=== PATIENT | female | born 1965 | race Caucasian/White ===

== ENCOUNTER 2016-09-02 14:19 | Observation (INO) | payer OTHER ==
[2016-09-02] MEDS ORDERED: NS 0.9% 1000 ML* 1,000 ML IV SCH (14:45)
[2016-09-02] MEDS ORDERED: Ondansetron INJ* 2 MG/ML VIAL IV ONE (14:54)
[2016-09-02 15:06] LABS: Hematocrit 49 % (35-47); Hemoglobin 16.3 g/dl (12.0-16.0); Mean Corpuscular HGB Conc 34 g/dl (31-36); Mean Corpuscular Hemoglobin 29 pg (27-31); Mean Corpuscular Volume 86 fL (80-97); Mean Platelet Volume 9 um3 (7.4-10.4); Red Blood Count 5.65 10^6/ul (4.0-5.4); Red Cell Distribution Width 13 % (10.5-15); White Blood Count 26.6 10^3/ul (3.5-10.8)
--- NOTE | 2016-09-02 15:17 | RAD ---
INDICATION: Altered mental status. COMPARISON: Comparison is made with a prior CT of the brain from April 10, 2016 and a prior MRI of the brain from April 12, 2016. TECHNIQUE: Contiguous axial sections of the brain were obtained from the skull base to the vertex without contrast. FINDINGS: There is a moderate to large area of encephalomalacia present on the left side in the distribution of the left middle cerebral artery consistent with an old infarct. There is also a small area of decreased density present in the posterior limb of the right internal capsule most consistent with an old lacunar infarct. This appears new from the prior study. No other focal abnormalities or mass effect are seen. There is no evidence for hemorrhage.. There is complete opacification of the visualized portion of the left maxillary sinus which appears similar to the prior exam. The visualized portion of the paranasal sinuses and mastoid air cells otherwise appear clear. IMPRESSION: 1. NO EVIDENCE FOR GROSS ACUTE INFARCT, MASS EFFECT OR HEMORRHAGE. 2. 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 3. FINDINGS SUGGESTIVE OF AN OLD LACUNAR INFARCT ON THE RIGHT SIDE.
[2016-09-02 15:21] LABS: ALT 14 U/L (7-52); AST 12 U/L (13-39); Albumin 4.3 g/dL (3.2-5.2); Alkaline Phosphatase 126 U/L (34-104); Anion Gap 14 mmol/L (2-11); BUN/Creatinine Ratio 12.6 (8-20); Blood Urea Nitrogen 13 mg/dL (6-24); C Reactive Protein 5.95 mg/L (< 5.00); CO2 Carbon Dioxide 23 mmol/L (22-32); Calcium 10.5 mg/dL (8.6-10.3); Chloride 99 mmol/L (101-111); Creatine Kinase 18 U/L (10-223); EGFR African American 72.7 (>60); EGFR Non-African American 56.5 (>60); Globulin 3.6 g/dL (2-4); Glucose 214 mg/dL (70-100); Lipase 36 U/L (11.0-82.0); Magnesium 1.8 mg/dL (1.9-2.7); Potassium 3.6 mmol/L (3.5-5.0); Sodium 136 mmol/L (133-145); Total Protein 7.9 g/dL (6.4-8.9)
[2016-09-02 15:23] LABS: B Type Natriuretic Peptide 48 pg/mL
[2016-09-02 15:26] LABS: Add Diff/Slide Review? Slide Review Added; Comments Flag Yes
--- NOTE | 2016-09-02 15:43 | RAD ---
INDICATION: Altered mental status. COMPARISON: Comparison is made with a prior study from April 08, 2016. TECHNIQUE: A portable view of the chest was obtained. FINDINGS: Cardiac and mediastinal contours appear to be within normal limits. The lungs are clear. No pleural effusion is seen. IMPRESSION: NO EVIDENCE FOR ACUTE DISEASE.
[2016-09-02 15:44] LABS: Acetaminophen < 15 mcg/mL
[2016-09-02 15:55] LABS: TSH (Thyroid Stimulating Horm) 2.84 mcIU/mL (0.34-5.60)
[2016-09-02 16:02] LABS: Ammonia 35 mol/L (16-53)
[2016-09-02 16:12] LABS: Eosinophils % 1 % (0-6); Immature Granulocytes 14 % (0-9); Neutrophil % 77 % (38-83); RBC Morphology Normal (Normal)
--- NOTE | 2016-09-02 17:15 | ED ---
Ivan Hernandez Billy, scribed for José Whitehead MD on 09/02/16 at 1540 . Complex/Multi-Sys Presentation - HPI Summary HPI Summary: Patient is a 51 year-old female coming to [facility] presenting with AMS since earlier today. Patient's daughter reports that at 1230, patient had an episode of N/V in the car. By the time they arrived home, the patient had diarrhea in the car and in the house. Per daughter, patient also appeared somewhat confused. Patient had previous CVA and has right-sided weakness and expressive aphasia at baseline; today she is acting worse than baseline. No antibiotics, hospitalizations, or contact with sick people recently. - History Of Current Complaint Chief Complaint: EDAltMentalStatus Time Seen by Provider: 09/02/16 15:19 Hx Obtained From: Patient Onset/Duration: Gradual Onset, Lasting Hours, Still Present Timing: Constant Severity Currently: Moderate Severity Initially: Moderate Aggravating Factor(s): none Alleviating Factor(s): none Associated Signs And Symptoms: Positive: Confusion, Nausea, Vomiting, Diarrhea - Allergies/Home Medications Allergies/Adverse Reactions: Allergies Allergy/AdvReac Type Severity Reaction Status Date / Time Clarithromycin [From Biaxin] Allergy Rash Verified 04/10/16 15:29 Diphenhydramine Allergy Rash Verified 04/10/16 15:29 [From Benadryl] Latex Allergy Rash Verified 04/10/16 15:29 Home Medications: Home Medications Insulin GLARGINE(*) [Lantus(*)] 10 units SUBCUT QPM 09/02/16 [History Confirmed 09/02/16] PMH/Surg Hx/FS Hx/Imm Hx Endocrine/Hematology History: Reports: Hx Diabetes Cardiovascular History: Reports: Hx Hypertension, Other Cardiovascular Problems/ Disorders - hx stroke on right side 04/16 Denies: Hx Pacemaker/ICD Respiratory History: Reports: Hx Asthma Musculoskeletal History: Reports: Hx Fibromyalgia Sensory History: Reports: Hx Contacts or Glasses Denies: Hx Hearing Aid Opthamlomology History: Reports: Hx Contacts or Glasses Psychiatric History: Denies: Hx Panic Disorder - Surgical History Surgery Procedure, Year, and Place: C-CECTION 88, 92 SKIN TAG Infectious Disease History: No Infectious Disease History: Denies: Traveled Outside the [place] in Last 30 Days - Family History Known Family History: Positive: Cardiac Disease - Per EMR, Father 68 with [place]. Mother at 62 with [place]. , Hypertension, Diabetes - Social History Alcohol Use: Rare Hx Substance Use: No Substance Use Type: Reports: None Smoking Status (MU): Heavy Every Day Tobacco Smoker Type: Cigarettes Review of Systems Positive: Vomiting, Diarrhea, Nausea Neurological: Other - AMS, expressive aphasia Positive: Weakness - right-sided All Other Systems Reviewed And Are Negative: Yes Physical Exam - Summary Physical Exam Summary: VITAL SIGNS: Reviewed. GENERAL: Patient is an obese female who is lying comfortable in the stretcher. Patient is not in any acute respiratory distress. HEAD AND FACE: Normocephalic and atraumatic. EYES: PERRLA, EOMI x 2, No injected conjunctiva. EARS: Hearing grossly intact. Ear canals and tympanic membranes are WNL. MOUTH: Dry oral mucosa. NECK: Supple, trachea is midline, no adenopathy, no JVD. CHEST: Symmetric, no tenderness at palpation LUNGS: Clear to auscultation bilaterally. No wheezing or crackles. CVS: RRR,, S1 and S2 present, no murmurs or gallops appreciated. ABDOMEN: Soft, obese, non-tender. No signs of distention. Positive bowel sounds. No rebound no guarding, and no masses palpated. No abdominal bruit or pulsations. EXTREMITIES: FROM in all major joints, no edema, no cyanosis or clubbing. NEURO: letkargic, but answers questions appropriately. SKIN: Dry and warm Triage Information Reviewed: Yes Vital Signs On Initial Exam: Initial Vitals Temp Pulse Resp BP Pulse Ox 96.6 F 73 18 120/67 97 09/02/16 14:42 09/02/16 14:42 09/02/16 14:42 09/02/16 14:42 09/02/16 14:42 Vital Signs Reviewed: Yes Diagnostics - Vital Signs Vital Signs Temp Pulse Resp BP Pulse Ox 09/02/16 14:42 96.6 F 73 18 120/67 97 - Laboratory Lab Results: Lab Results 09/02/16 09/02/16 09/02/16 Range/Units 14:55 14:55 14:55 WBC 26.6 H (3.5-10.8) 10^3/ul RBC 5.65 H (4.0-5.4) 10^6/ul Hgb 16.3 H (12.0-16.0) g/dl Hct 49 H (35-47) % MCV 86 (80-97) fL MCH 29 (27-31) pg MCHC 34 (31-36) g/dl RDW 13 (10.5-15) % Plt Count 342 (150-450) 10^3/ul MPV 9 (7.4-10.4) um3 Neut % (Auto) 93.0 H (38-83) % Lymph % (Auto) 4.1 L (25-47) % [place] % (Auto) 2.1 (1-9) % Eos % (Auto) 0.6 (0-6) % Baso % (Auto) 0.2 (0-2) % Absolute Neuts (auto) 24.7 H (1.5-7.7) 10^3/ul Absolute Lymphs (auto) 1.1 (1.0-4.8) 10^3/ul Absolute Monos (auto) 0.6 (0-0.8) 10^3/ul Absolute Eos (auto) 0.1 (0-0.6) 10^3/ul Absolute Basos (auto) 0.1 (0-0.2) 10^3/ul Absolute Nucleated RBC 0 10^3/ul Nucleated RBC % 0 Sodium 136 (133-145) mmol/L Potassium 3.6 (3.5-5.0) mmol/L Chloride 99 L (101-111) mmol/L Carbon Dioxide 23 (22-32) mmol/L Anion Gap 14 H (2-11) mmol/L BUN 13 (6-24) mg/dL Creatinine 1.03 H (0.51-0.95) mg/dL Est GFR ( Amer) 72.7 (>60) Est GFR (Non-Af Amer) 56.5 (>60) BUN/Creatinine Ratio 12.6 (8-20) Glucose 214 H (70-100) mg/dL Lactic Acid (0.5-2.0) mmol/L Calcium 10.5 H (8.6-10.3) mg/dL Magnesium 1.8 L (1.9-2.7) mg/dL Total Bilirubin 0.50 (0.2-1.0) mg/dL AST 12 L (13-39) U/L ALT 14 (7-52) U/L Alkaline Phosphatase 126 H (34-104) U/L Ammonia Pending Total Creatine Kinase 18 (10-223) U/L CK-MB (CK-2) 0.9 (0.6-6.3) ng/mL Troponin I 0.00 (<0.04) ng/mL C-Reactive Protein 5.95 H (< 5.00) mg/L B-Natriuretic Peptide 48 ( - 100) pg/mL Total Protein 7.9 (6.4-8.9) g/dL Albumin 4.3 (3.2-5.2) g/dL Globulin 3.6 (2-4) g/dL Albumin/Globulin Ratio 1.2 (1-3) Lipase 36 (11.0-82.0) U/L TSH Pending Acetaminophen Pending 09/02/16 Range/Units 14:55 WBC (3.5-10.8) 10^3/ul RBC (4.0-5.4) 10^6/ul Hgb (12.0-16.0) g/dl Hct (35-47) % MCV (80-97) fL MCH (27-31) pg MCHC (31-36) g/dl RDW (10.5-15) % Plt Count (150-450) 10^3/ul MPV (7.4-10.4) um3 Neut % (Auto) (38-83) % Lymph % (Auto) (25-47) % [place] % (Auto) (1-9) % Eos % (Auto) (0-6) % Baso % (Auto) (0-2) % Absolute Neuts (auto) (1.5-7.7) 10^3/ul Absolute Lymphs (auto) (1.0-4.8) 10^3/ul Absolute Monos (auto) (0-0.8) 10^3/ul Absolute Eos (auto) (0-0.6) 10^3/ul Absolute Basos (auto) (0-0.2) 10^3/ul Absolute Nucleated RBC 10^3/ul Nucleated RBC % Sodium (133-145) mmol/L Potassium (3.5-5.0) mmol/L Chloride (101-111) mmol/L Carbon Dioxide (22-32) mmol/L Anion Gap (2-11) mmol/L BUN (6-24) mg/dL Creatinine (0.51-0.95) mg/dL Est GFR ( Amer) (>60) Est GFR (Non-Af Amer) (>60) BUN/Creatinine Ratio (8-20) Glucose (70-100) mg/dL Lactic Acid 3.1 H* (0.5-2.0) mmol/L Calcium (8.6-10.3) mg/dL Magnesium (1.9-2.7) mg/dL Total Bilirubin (0.2-1.0) mg/dL AST (13-39) U/L ALT (7-52) U/L Alkaline Phosphatase (34-104) U/L Ammonia Total Creatine Kinase (10-223) U/L CK-MB (CK-2) (0.6-6.3) ng/mL Troponin I (<0.04) ng/mL C-Reactive Protein (< 5.00) mg/L B-Natriuretic Peptide ( - 100) pg/mL Total Protein (6.4-8.9) g/dL Albumin (3.2-5.2) g/dL Globulin (2-4) g/dL Albumin/Globulin Ratio (1-3) Lipase (11.0-82.0) U/L TSH Acetaminophen Result Diagrams: 09/02/16 14:55 09/02/16 14:55 Lab Statement: Any lab studies that have been ordered have been reviewed, and results considered in the medical decision making process. - Radiology CXR Xray Interpretation: No Acute Changes Radiology Interpretation Completed By: Radiologist - CT brain w/o CT Interpretation Completed By: Radiologist - 1. NO EVIDENCE FOR GROSS ACUTE INFARCT, MASS EFFECT OR HEMORRHAGE. 2. 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 3. FINDINGS SUGGESTIVE OF AN OLD LACUNAR INFARCT ON THE RIGHT SIDE. Complex Multi-Symp Course/Dx Assessment/Plan: Patient is a 51 year-old female coming to [facility] presenting with AMS since earlier today. Patient's daughter reports that at 1230, patient had an episode of N/V in the car. By the time they arrived home, the patient had diarrhea in the car and in the house. Per daughter, patient also appeared somewhat confused. Patient had previous CVA and has right-sided weakness and expressive aphasia at baseline; today she is acting worse than baseline. No antibiotics, hospitalizations, or contact with sick people recently. Bloodwork shows WBC of 26.6, Hgb/Hct is 16.3/49 without bands. Creatinine of 1.03. Glucose of 214. Lactic acid of 3.1. CRP of 5.95. CT of the brain shows no evidence of acute infarct and old left middle cerebral artery infarct. CXR shows no acute disease. In the ED course, patient seemed dehydrated, so she was started with IV fluids. The patient had several episodes of foul, odorous diarrhea without blood. Stool cultures were sent to the lab. The patient was given 2L of normal saline. At this point, I discussed the case with Dr. Rahman who will be admitting the patient to the medical floor for further workup and management. - Diagnoses Differential Diagnoses/HQI/PQRI: CVA, Urinary Tract Infection, Other - diarrhea , weakness Provider Diagnoses: Diarrhea, Weakness, Abdominal cramping Provider Diagnoses: (Ruled Out): gastroenteritis, cdiff - Physician Notifications Discussed Care Of Patient With: Dr. Rahman (hospitalist) @ 1620: accepts admission. Discharge - Discharge Plan Condition: Stable Disposition: ADMITTED TO [facility] documentation as recorded by the Ivan garcia Billy accurately reflects the service I personally performed and the decisions made by me, José Whitehead MD.
[2016-09-02] MEDS ORDERED: Acetaminophen TAB* 325 MG PO PRN (17:27)
[2016-09-02] MEDS ORDERED: Dextrose 50% Syringe 50 ML* 25 GM/50 ML SYRINGE IV PUSH PRN (17:27)
[2016-09-02] MEDS ORDERED: Ondansetron INJ* 2 MG/ML VIAL IV PRN (17:27)
[2016-09-02] MEDS ORDERED: Albuterol HFA INHALER* 8 gm MDI INH PRN (17:30)
[2016-09-02] MEDS ORDERED: Magnesium Sulfate 2 GM IV* 2 GM/50 ML BAG IVPB ONE (17:40)
[2016-09-02] MEDS ORDERED: Insulin GLARGINE(*) 1 UNITS UNIT SUBCUT SCH (18:00)
[2016-09-02] MEDS: NS 0.9% 1000 ML* 1,000 ML IV SCH (18:00)
[2016-09-02 18:42] LABS: Hematocrit 44 % (35-47); Hemoglobin 14.3 g/dl (12.0-16.0); Mean Corpuscular HGB Conc 33 g/dl (31-36); Mean Corpuscular Hemoglobin 29 pg (27-31); Mean Corpuscular Volume 87 fL (80-97); Mean Platelet Volume 9 um3 (7.4-10.4); Red Blood Count 4.99 10^6/ul (4.0-5.4); Red Cell Distribution Width 14 % (10.5-15); White Blood Count 19.2 10^3/ul (3.5-10.8)
[2016-09-02 18:56] LABS: EGFR African American 81.7 (>60); EGFR Non-African American 63.6 (>60)
[2016-09-02 20:28] LABS: Urine Bacteria Absent (Absent); Urine Bilirubin Negative (Negative); Urine Glucose Negative (Negative); Urine Nitrite Negative (Negative)
[2016-09-02] MEDS ORDERED: traZODone TAB* 50 MG TAB PO SCH (21:00)
[2016-09-02] MEDS: Heparin VIAL(*) 5000 UNITS/ML VIAL (FIVE THOUSAND) SUBCUT SCH (21:56)
--- NOTE | 2016-09-02 22:13 | HP ---
ATTENDING PHYSICIAN ADDENDUM NOW INCLUDED ON THIS REPORT HISTORY AND PHYSICAL: DATE OF ADMISSION: 09/02/16 PRIMARY CARE PROVIDER: Dr. Mckenzie. ATTENDING PHYSICIAN WHILE IN THE HOSPITAL: Dr. Dominique Rahman *(report dictated by Colin Zayas NP). CHIEF COMPLAINT: 1. Vomiting. 2. Diarrhea. HISTORY OF PRESENT ILLNESS: Mrs. Wolf is a 51-year-old female patient who in April of this year sustained a CVA with right-sided weakness and aphasia as deficits, history of diabetes, hypertension, asthma, anxiety, tobacco use, history of now and a history of fibromyalgia. She comes in today. She was on her way home with her daughter and she started vomiting about 4 times in the car. The patient asked her to mold puller and she went to stand up and she looked like she was going to faint. She did not lose consciousness, but the daughter was concerned because she was complaining of lightheadedness and that she might faint. She sat her down and it was noted that she was incontinent of diarrhea. She had about 3 to 4 episodes of loose diarrhea. There has been no recent antibiotics. She says that when she initially came to the ER, she had some periumbilical abdominal discomfort, but that has now gone. There has been no blood in the vomit and no blood in the stool or any tarry stools, but the stools have been liquid. The family all had the same meal last night, they are not sick. The daughter does work at a local group home, who is exposed to sick contact. Obviously, there was concern on the daughter's part. She could not get the patient back in the car when she stood up to vomit. So, she called 911 and she was brought in to the hospital. The patient now says that she feels better. She does feel nauseous, but she is still having liquid stools. There has been no reports of fever. Yesterday, the patient said she was feeling fine. She had no sore throat. No rhinorrhea. She denied having any abdominal pain or any fevers or chills. Had no diarrhea yesterday. The recent change in medication is her Lantus has been decreased from 30 to 10. She was evaluated in the ER. It was noted that she had an elevated white count. She appeared to be dehydrated. She had a bandemia and there was concern for possible C. diff although this was negative, but there is concern for viral gastroenteritis. The hospitalist service was asked to evaluate for admission. PAST MEDICAL HISTORY: Significant for: 1. Diabetes. 2. Hypertension. 3. Asthma. 4. Anxiety. 5. Tobacco use. 6. Fibromyalgia. 7. 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 PAST SURGICAL HISTORY: She denied. HOME MEDICATIONS: According to the daughter includes: 1. Trazodone 50 mg p.o. at bedtime. 2. Metformin 500 mg p.o. at 8 o'clock in the morning and 1700. 3. Amlodipine 5 mg daily. 4. ProAir 90 mcg inhaled every 4 hours as needed. 5. Ritalin 2.5 mg p.o. at 7 in the morning and 11 o'clock in the morning. 6. Lisinopril 10 mg a day. 7. Lantus 10 units subcu at bedtime. 8. Prozac 30 mg daily. 9. Plavix 75 mg daily. 10. Celexa 20 mg daily. 11. Lipitor 20 mg daily. 12. Atenolol 25 mg daily. 13. Aspirin 81 mg daily. ALLERGIES TO MEDICATIONS: Include BIAXIN, BENADRYL, and LATEX. FAMILY HISTORY: Both her parents had heart attacks, in their 60s. SOCIAL HISTORY: She is a former 5-[id number]-h-day smoker. She quit in April when she had the stroke. Surrogate decision maker is her daughter. She does not drink alcohol. REVIEW OF SYSTEMS: There is no documented fever. She denied having any significant weight change. There was no double vision. There is no ear discharge. There is no rhinorrhea. There is no sore throat. No thyroid enlargement. She denies having any chest pain. There is no orthopnea. There is no nocturnal dyspnea. There is no abdominal pain. There was some nausea, vomiting, and diarrhea. No dysuria. No frequency. No loss of consciousness. No pruritus. No skin ulcerations. Review of 14 systems completed, all others negative. PHYSICAL EXAMINATION GENERAL: At this time, Ms. Wolf is a 51-year-old female patient. She is sitting in the ER stretcher. She does not appear to be in any acute distress. She is awake and she is alert. She is morbidly obese. VITAL SIGNS: Blood pressure 120/67, pulse 73, respirations 18, O2 saturation 97 %, temperature 96.6. HEENT: Head: Atraumatic, normocephalic. Eyes: EOMs intact. Sclerae anicteric and not pale. Throat: Oral mucosa appears to be moist. No oropharyngeal erythema. NECK: Supple. LUNGS: Clear to auscultation. No wheezes, rales, or rhonchi. HEART: Sounds S1, S2. Regular rate and rhythm. No murmurs, rubs, or gallops. ABDOMEN: Soft, it was flat. Bowel sounds were hyperactive. No tenderness on exam. EXTREMITIES: Pulses were 2+ throughout. She has weakness noted to the right side. NEUROLOGIC: She is awake, alert, and oriented x3. Her speech is slow, but it is clear currently and there is weakness noted to the right side. SKIN: Intact. LABORATORY DATA AND DIAGNOSTIC STUDIES: Today revealed a WBC of 26.6, RBC of 5.68, hemoglobin 16.3, hematocrit of 49, and a platelet count of 342. The INR was 0.94. The PTT was 31.5. The sodium was 136, potassium was 3.6, chloride was 99, the bicarb was 23, BUN 13, creatinine 1.03, it was 0.6 at baseline. Glucose 214, lactic 3.1, calcium 10.5. Her mag was 1.8. Total bili 0.5, AST 12 , ALT 14, alk phos 126. Ammonia was 35. CK 18. Troponin 0. CRP 5.95. Lipase 36. Albumin 4.3. Toxicology negative for Tylenol. There was a chest x-ray obtained today, which showed no evidence of acute disease. There was a brain CTA, which showed no evidence of gross acute infarct, mass effect, or hemorrhage. Old left MCA infarct. Findings suggestive of old lacunar infarct on the right side. Old medical records were reviewed. ASSESSMENT AND PLAN: Ms. Wolf is a 51-year-old female patient coming in to the ER today with onset of nausea, vomiting, and diarrhea. On evaluation in the ER today, it was noted that she had significant leukocytosis and bandemia. There was concern for possible C. diff although initial testing is negative. Hospitalist service was asked to evaluate for admission. She will be admitted under observation status for: 1. Gastroenteritis: It is probably a viral gastroenteritis. I do note the high white count, but she appears to be significantly dehydrated. She is going to get normal saline at 100 for initial 2 L. In addition to this, we will send off for norovirus and rotavirus and stool cultures are pending and I will get a fecal lactoferrin as well and we will continue to follow her and see if there is any evolution of her symptoms. I am holding on antibiotics at this point. 2. Diabetes: She will be on lispro sliding scale. In addition to this, Lantus. 3. Hypertension: In the setting of acute illness, I will continue the beta- yordy and Norvasc, but I will put on hold parameters and we will monitor her. She is on lisinopril. I did hold that while she is here and acutely ill. 4. Anxiety: Continue meds as prescribed. 5. History of tobacco abuse: She said she is not going to smoke again. We will continue to encourage her cessation. 6. Fibromyalgia: Continue with supportive care. 7. History of cerebrovascular accident: Continue with secondary prevention. She is on Plavix, aspirin, and statin. 8. DVT prophylaxis: She will be placed on heparin subcu. 9. Code status: She wishes to be a full code. 10. Fluids, electrolytes, and nutrition: She can have a clear liquid diet. TIME SPENT: Time spent on the admission was approximately 60 minutes, greater than half the time was spent [id number] with the patient obtaining my history and physical, other half the time spent going over the plan of care with the patient and implementing plan of care. I did discuss the plan of care with my attending, Dr. Rahman; she is in agreement. COLIN ZAYAS NP ADDENDUM: Mrs. Wolf is a 51-year-old female with history of diabetes, hypertension who presents with sudden onset of nausea, vomiting, diarrhea, and mild abdominal pain. The patient has marked leukocytosis. Her stool for C. diff is negative. The patient most likely has viral gastroenteritis. She is going to be admitted for supportive treatment with intravenous hydration. For further details of the patient's presentation and plan, please see history and physical dictated by Colin Zayas NP on 09/02/16, with which I agree. DOMINIQUE RAHMAN MD CC: Dr. Mckenzie* [id number] #: [id number]/CPS #: [id number] [facility]
--- NOTE | 2016-09-02 22:13 | HP ---
HISTORY AND PHYSICAL:* ADDENDUM: Mrs. Wolf is a 51-year-old female with history of diabetes, hypertension who presents with sudden onset of nausea, vomiting, diarrhea, and mild abdominal pain. The patient has marked leukocytosis. Her stool for C. diff is negative. The patient most likely has viral gastroenteritis. She is going to be admitted for supportive treatment with intravenous hydration. For further details of the patient's presentation and plan, please see history and physical dictated by Colin Zayas NP on 09/02/16, with which I agree. [id number]/CPS #: [id number] MTDD
[2016-09-03] MEDS: NS 0.9% 1000 ML* 1,000 ML IV SCH (01:50)
[2016-09-03 05:50] LABS: Hematocrit 37 % (35-47); Hemoglobin 12.7 g/dl (12.0-16.0); Mean Corpuscular HGB Conc 34 g/dl (31-36); Mean Corpuscular Hemoglobin 29 pg (27-31); Mean Corpuscular Volume 86 fL (80-97); Mean Platelet Volume 9 um3 (7.4-10.4); Red Blood Count 4.31 10^6/ul (4.0-5.4); Red Cell Distribution Width 13 % (10.5-15); White Blood Count 13.6 10^3/ul (3.5-10.8)
[2016-09-03 05:57] LABS: BUN/Creatinine Ratio 22.4 (8-20); Calcium 8.5 mg/dL (8.6-10.3); EGFR African American 119.3 (>60); EGFR Non-African American 92.8 (>60); Potassium 3.9 mmol/L (3.5-5.0)
[2016-09-03] MEDS: Heparin VIAL(*) 5000 UNITS/ML VIAL (FIVE THOUSAND) SUBCUT SCH ×2 (06:14→13:52)
[2016-09-03] MEDS: Methylphenidate TAB* 5 MG PO SCH ×2 (06:14→12:31)
[2016-09-03] MEDS: Insulin LISPRO* 1 UNITS UNIT SUBCUT SCH ×2 (08:13→12:13)
[2016-09-03] MEDS ORDERED: FLUoxetine CAP* 10 MG PO SCH (09:00)
[2016-09-03] MEDS ORDERED: Clopidogrel TAB* 75 MG PO SCH (09:00)
[2016-09-03] MEDS ORDERED: Citalopram TAB* 20 MG PO SCH (09:00)
[2016-09-03] MEDS ORDERED: Aspirin EC Low Dose* 81 MG TAB.EC PO SCH (09:00)
[2016-09-03] MEDS ORDERED: Atenolol TAB* 25 MG PO SCH (09:00)
[2016-09-03] MEDS ORDERED: amLODIPine TAB* 5 MG PO SCH (09:00)
[2016-09-03 13:44] VITALS: BP 130/61
[2016-09-03] MEDS ORDERED: Atorvastatin* 20 MG TAB PO SCH (17:00)
--- NOTE | 2016-09-04 05:54 | DS ---
DISCHARGE SUMMARY: DATE OF ADMISSION: 09/02/16 DATE OF DISCHARGE: 09/03/16 PRIMARY CARE PHYSICIAN: Dr. Mckenzie. DISCHARGE DIAGNOSIS: Gastroenteritis, viral most likely. SECONDARY DIAGNOSES: 1. History of diabetes. 2. Hypertension. 3. History of residual right-sided hemiparesis secondary to ischemic cerebrovascular accident. 4. Fibromyalgia. 5. Anxiety. MEDICATIONS AT DISCHARGE: Unchanged from admission and include: 1. ProAir 1 inhalation every 4 hours p.r.n. 2. Aspirin 81 mg daily. 3. Atenolol 25 mg daily. 4. Lipitor 10 mg daily. 5. Celexa 40 mg daily. 6. Plavix 75 mg daily. 7. Prozac 30 mg daily. 8. Insulin Lantus 10 units daily. 9. Lisinopril 10 mg daily. 10. Ritalin 5 mg daily at 7 a.m. and 11 a.m. 11. Norvasc 5 mg daily. 12. Glucophage 500 mg b.i.d. 13. Trazodone 50 mg at bedtime. LABORATORY DATA AT DISCHARGE: Showed white blood cell count of 13.6, hemoglobin 12.7, hematocrit 37, Sodium was 135, potassium 3.9, chloride 108, carbon dioxide 24, BUN 15, creatinine 0.67. HOSPITALIZATION COURSE: Brandy Wolf is a 51-year-old female with a history of diabetes, hypertension, who has residual right-sided weakness due to ischemic CVA, had sudden onset of nausea, vomiting, diarrhea, and abdominal cramping on 09/02/16. The patient had marked elevation of her white blood cell count at 26,000 with 14 bands that all resolved with supportive treatment with intravenous hydration. By the time of discharge, her abdominal discomfort resolved. She had one episode of loose stool on the morning prior to discharge. Her nausea and vomiting resolved and she was able to tolerate regular diet prior to discharge. She is going to be discharged home to follow up with Dr. Mckenzie as an outpatient in 4 to 7 days. PHYSICAL EXAMINATION AT THE TIME OF DISCHARGE: Blood pressure of 132/64, heart rate of 86 and regular, respiratory rate 18, oxygen saturation 95% on room air , and temperature 98.0. General: This is a very pleasant 51-year-old female, who is in no acute distress. Awake, alert, and oriented x3. HEENT: Head: Atraumatic, normocephalic. Eyes: Pupils equal, reactive to light and accommodation. Oropharynx clear. Mucosa moist. Neck: Supple. No JVD, no bruit bilaterally. Cardiovascular: Regular rate and rhythm. No murmur. Respiratory: Clear to auscultation bilaterally. Abdomen: Soft, nontender. Bowel sounds present in all 4 quadrants. Extremities: There is no edema. Pulses are +2 bilaterally. No clubbing or cyanosis. Neuro Evaluation: Positive for an element of expressive aphasia. The patient is able to let her needs known, though. She has right-sided weakness and right upper extremity proximally at 3+/5, distally at 4+/5. The patient has minimal weakness in the right lower extremity. Please note that the patient underwent physical therapy evaluation, she was deemed to be clear to ambulate with a rolling walker on discharge. Please note that this is a short summary of the patient's hospital stay. Please refer to further medical records for further details. CC: Dr. Mckenzie * [id number]/[facility] #: [id number] JESSICA
== END 2016-09-03 16:10 | disposition home or self-care (01) ==
LOC: ED 14:19 → MERGE 14:19 → MED 16:15
PROVIDERS: ADMIT Internal Medicine; ATTEND Internal Medicine
DX: A08.4 Viral intestinal infection, unspecified (principal); E11.9 Type 2 diabetes mellitus without complications; Z79.4 Long term (current) use of insulin; I10 Essential (primary) hypertension; I69.351 Hemiplegia and hemiparesis following cerebral infarction affecting right dominant side; I69.320 Aphasia following cerebral infarction; M79.7 Fibromyalgia; F41.9 Anxiety disorder, unspecified; Z79.02 Long term (current) use of antithrombotics/antiplatelets; Z79.899 Other long term (current) drug therapy; Z79.82 Long term (current) use of aspirin; Z88.1 Allergy status to other antibiotic agents; Z88.8 Allergy status to other drugs, medicaments and biological substances; Z87.891 Personal history of nicotine dependence; D72.829 Elevated white blood cell count, unspecified; Z79.01 Long term (current) use of anticoagulants
CPT/HCPCS: 36415; 70450; 71010; 80048; 80053; 80329; 81003; 81015; 82140; 82272; 82550; 82553; 82565; 83605; 83630; 83690; 83735; 83880; 84443; 84484; 84520; 85025; 85610; 85730; 86140; 87040; 87045; 87046; 87077; 87086; 87328; 87329; 87493; 87899; 96361; 96365; 96372; 96375; 96376; 99284; 99406; A9270-GY; G0378; G0480; J1644; J2405; J3475

== ENCOUNTER 2017-01-12 15:19 | Observation (INO) | payer OTHER ==
[2017-01-12] MEDS ORDERED: NS 0.9% 1000 ML* 1,000 ML IV ONE (15:48)
--- NOTE | 2017-01-12 15:59 | RAD ---
INDICATION: CVA COMPARISON: September 02, 2016 TECHNIQUE: Noncontrast axial source images were acquired from the skull base to the vertex. FINDINGS: Ventricles/sulci: There is mild cortical atrophy with compensatory dilatation of the CSF spaces. Brain parenchyma: There is an old left MCA distribution infarct with resultant encephalomalacia. The appearance is unchanged. There are no new focal parenchymal findings. Intracranial hemorrhage:None. Extra-axial spaces: There are no abnormal extra axial fluid collections or evidence of extra-axial mass. Calvarium: There is no calvarial fracture or other calvarial abnormality. Scalp: There is no evidence of scalp or extracalvarial soft tissue abnormality. Paranasal sinuses/mastoid: There is a large retention cyst or polyp in left maxillary antrum, unchanged The visualized paranasal sinuses and mastoid air cells are otherwise clear. Other: None. IMPRESSION: OLD LEFT MCA DISTRIBUTION INFARCT. NO ACUTE FINDINGS.
--- NOTE | 2017-01-12 16:30 | RAD ---
INDICATION: Acute neurologic changes COMPARISON: Most recent comparison chest x-rays dated September 02, 2016 TECHNIQUE: Single AP portable view of the chest was obtained. FINDINGS: Image quality is compromised due to the relative inferiority of a portable chest x-ray. The heart and mediastinum exhibit normal size and contour. The lungs are grossly clear. There is no evidence of a large pleural effusion. Visualized bones are normal for the patient's age. IMPRESSION: No radiographic evidence for acute cardiopulmonary abnormality on this portable chest x-ray.
[2017-01-12 17:20] LABS: Hematocrit 41 % (35-47); Hemoglobin 13.8 g/dl (12.0-16.0); Mean Corpuscular HGB Conc 33 g/dl (31-36); Mean Corpuscular Hemoglobin 29 pg (27-31); Mean Corpuscular Volume 88 fL (80-97); Mean Platelet Volume 9 um3 (7.4-10.4); Red Blood Count 4.69 10^6/ul (4.0-5.4); Red Cell Distribution Width 13 % (10.5-15); White Blood Count 10.9 10^3/ul (3.5-10.8)
[2017-01-12 17:37] LABS: Calcium 9.6 mg/dL (8.6-10.3); EGFR African American 104.8 (>60); EGFR Non-African American 81.5 (>60); Globulin 3.4 g/dL (2-4); Total Bilirubin 0.4 mg/dL (0.2-1.0); Total Protein 7.4 g/dL (6.4-8.9)
[2017-01-12 18:41] LABS: Potassium 4.6 mmol/L (3.5-5.0)
[2017-01-12] MEDS ORDERED: Dextrose 50% Syringe 50 ML* 25 GM/50 ML SYRINGE IV PUSH PRN (19:34)
[2017-01-12] MEDS: Heparin VIAL(*) 5000 UNITS/ML VIAL (FIVE THOUSAND) SUBCUT SCH (21:26)
[2017-01-12] MEDS: traZODone TAB* 50 MG TAB PO SCH (21:26)
[2017-01-12] MEDS: NS 0.9% 1000 ML* 1,000 ML IV SCH (21:31)
[2017-01-12] MEDS: Insulin LISPRO* 1 UNITS UNIT SUBCUT SCH (21:51)
[2017-01-12] MEDS: Insulin GLARGINE(*) 1 UNITS UNIT SUBCUT SCH (21:52)
--- NOTE | 2017-01-13 00:58 | CONS ---
CONSULTATION REPORT: DATE OF CONSULT: 01/12/17 PATIENT OF: Dr. Boo. HISTORY OF PRESENT ILLNESS: This is a 51-year-old woman I am asked to evaluate for new-onset stroke as well as some aphasia and right-sided weakness that has cleared back to her baseline. She presented initially in April with MCA stroke that left her with significant hemiparesis and aphasia. This improved and she is able to walk and carry on a conversation, although she still is aphasic. She has been maintained on aspirin and Plavix and her risk factors include obesity, hypertension, diabetes type 2, tobacco abuse. She had been in her usual state of health until today when this morning at 10, her speech did not sound perfect, but then it returned to her normal baseline and she was with a family member driving in the car roughly 3 o'clock this afternoon when she had onset of staring spell with associated right-sided jerking and right mouth twitching. This lasted for several minutes and then she was densely aphasic with right-sided weakness. She was still quite aphasic when she came into the hospital and was sent directly to the CT scan; however, by the time she returned to the CT scan within about an hour of onset, she returned to baseline. She has had no prior staring spells or seizures. MEDICAL PROBLEMS: Include type 2 diabetes, hypertension, asthma, anxiety, obesity, tobacco abuse, fibromyalgia. HOME MEDICATIONS: Include: 1. Aspirin 81 mg daily. 2. Atenolol 25 mg daily. 3. Lipitor 20 mg daily. 4. Celexa 20 mg daily. 5. Plavix 75 mg daily. 6. Prozac 30 mg daily. 7. Insulin 10 units subcu q.p.m. 8. Lisinopril 10 mg daily. 9. Methylphenidate 2.5 twice a day and 5 mg at night. 10. Norvasc 5 mg daily. 11. ProAir 90 mcg inhaler q.4 hours p.r.n. 12. Metformin 500 mg twice a day. 13. Trazodone 50 mg at bedtime. ALLERGIES: She is allergic to CLARITHROMYCIN, BENADRYL and LATEX. FAMILY HISTORY: Her father of a heart attack and mother of a heart attack. SOCIAL HISTORY: She smokes 2 packs of cigarettes a day for many years. Does not use drugs or alcohol. She has very involved daughters. REVIEW OF SYSTEMS: Negative in all 14 spheres other than in the HPI. PHYSICAL EXAM: Temperature 99.2, pulse 69, respirations 21, blood pressure 172/ 71. She is alert and oriented. Speech was mildly hesitant, but she could speak in sentences. She can name many body parts, but not all body parts. She had trouble with elbow, but eventually got it right. This is typical for her. According to her 2 family members, who were present, there has been no change in her speech now compared to her baseline following her stroke. Cranial nerves II through XII were intact other than mild right facial weakness. Strength is 5/5 bilaterally and [id number] is intact bilaterally. She was unable to fully raise her arm, but it seemed like at least part of the contraction. She had been working with physical therapy on this and this is not new. There was trace pronator drift on the right. The patient is mildly subjectively decreased on the right-side compared to the left. This is not new. Either reflexes were 1. Toes were equivocal on the right side, downgoing on the left. Chest: Clear. Cardiovascular: Regular rate and rhythm. Abdomen : Soft with positive bowel sounds. She was obese. I reviewed her CT scan, which showed her old left MCA stroke. No bleeding. No new findings. DIAGNOSTIC STUDIES/LAB DATA: Laboratories are pending. IMPRESSION AND PLAN: Brandy had a new onset of what sounds like a complex partial seizure today beginning with staring and then going to right-sided clonic activity. This is presumably from her prior stroke and she is being loaded with Keppra now. It seems that given the evolution of her symptoms, her worse aphasia and hemiparesis, which has now completely cleared within an hour, it is most likely secondary to a postictal seizure, but it is possible that she could have had a small stroke in the same distribution, which has completely cleared. In any event, she is not a TPA candidate at this point since there is no change from baseline compared to her post stroke baseline according to the family. She will continue to get neuro checks in the ER for her changes and she will be admitted to the hospital. I will sign her off to Dr. Núñez and she will be loaded with Keppra now. Thank you for sharing her case. [id number]/[facility] #: [id number] [facility] HOSPITALRadha
--- NOTE | 2017-01-13 03:36 | HP ---
CC: Dr. Mckenzie * HISTORY AND PHYSICAL: DATE OF ADMISSION: 01/12/17 CHIEF COMPLAINT: Seizure-like activity. HISTORY OF PRESENT ILLNESS: The patient is a 51-year-old woman who really does not recall what happened, so the history is given by her daughter. Apparently, she was with her sister today in the car when all the sudden, her eyes rolled back of the head and she started shaking uncontrollably. It was not clear if she started foaming at the mouth. She did not bite her tongue. She had no urinary or bowel incontinence. However, the sister called 911 and for some reason, it did not answer. So, she drove over here. The patient does not remember when she woke up, but she said it was in the hospital and she was quite confused at that time. Initially, apparently the seizure like activity started at 3:09 p.m. The patient was seen in consult by Neuro who said it sounded like a seizure and she was admitted overnight for observation. PAST MEDICAL HISTORY: CVA in April of 2016, diabetes mellitus, hypertension, asthma, anxiety, tobacco abuse, fibromyalgia. CURRENT MEDICATIONS: As follows: 1. Trazodone 50 mg at bedtime. 2. Lantus insulin 10 units subcu p.m. 3. Prozac 30 mg daily. 4. Amlodipine 5 mg daily. 5. Lisinopril 10 mg daily. 6. Plavix 75 mg daily. 7. Atorvastatin 20 mg daily. 8. 25 mg daily. 9. Citalopram 20 mg daily. This should be looked up because she is on both fluoxetine and Celexa according to this, but the family says she is only on Prozac. ALLERGIES/ADVERSE REACTIONS: BIAXIN, BENADRYL, and LATEX. FAMILY HISTORY: Significant for parents both of [place] in their 60s. SOCIAL HISTORY: Ex-smoker 2 packs a day, quit this past April when she had the strokes. Surrogate decision maker is her daughter, Sathish Wlof. No alcohol or recreational drug use. REVIEW OF SYSTEMS: A 14-point review of systems was completed with the patient. All pertinent positives and negatives are in the history of present illness, otherwise it is negative. PHYSICAL EXAMINATION GENERAL: A pleasant woman, lying in bed, in no acute distress VITAL SIGNS: Blood pressure 130/60, pulse ox 99%, respiratory rate 20 breaths per minute, heart rate 64 beats per minute, temperature is 99.2 degrees. HEENT: Normocephalic, atraumatic. Pupils equal, round, and reactive to light. Moist mucous membranes. NECK: Supple. No JVD, bruits, palpable thyroid or lymphadenopathy. CHEST: Clear to auscultation and percussion bilaterally. CARDIOVASCULAR: S1, S2 appreciated. No murmurs, gallops or rubs. ABDOMEN: Positive bowel sounds in all 4 quadrants. Soft, nontender, and nondistended. EXTREMITIES: No cyanosis, clubbing or edema. +2 peripheral pulses bilaterally. NEUROLOGIC: Alert and oriented x3. Moves all extremities. There is about 4/5 motor strength in the right upper extremity, 5/5 in the left, but no other distinctive residual deficits. She may have slight amount of aphasia. LABORATORY DATA AND DIAGNOSTIC STUDIES: White count 7.9, hemoglobin 13.8, hematocrit 41, platelets 261. Sodium 137, potassium 4.6, chloride 103, CO2 27, BUN 15, creatinine 0.75, glucose is 124. INR is 0.95. Chest x-ray, no radiographic evidence for acute cardiopulmonary abnormality in this portable chest x-ray. Brain CT, old left MCA distribution infarct, no acute findings. ASSESSMENT AND PLAN: 1. Seizure. Appreciate Neurology's input. She was started on Keppra 500 mg IV b.i.d. We will eventually need EEG. Neuro checks q.4 hours. If the patient is stable overnight, can be discharged in the morning. 2. Cerebrovascular accident, stable. Continue current medications including Plavix. 3. Diabetes mellitus. Consistent carb diet. Start on fingerstick sliding scale. Check hemoglobin A1c in the morning. 4. Depression. We will place on Prozac as per family, discontinue Celexa. 5. DVT prophylaxis. Heparin subcu. 6. The patient is a full code. TIME SPENT: Over 75 minutes were spent on this H and P, more than 40 minutes of which were spent in direct [id number] contact with the patient in evaluation, physical exam, counseling, and coordination of care. [id number]/[facility] #: [id number] JESSICA
[2017-01-13] MEDS ORDERED: levETIRAcetam 500 MG IVPREMIX* 500 MG/100 ML BAG IV SCH (05:30)
[2017-01-13] MEDS: Heparin VIAL(*) 5000 UNITS/ML VIAL (FIVE THOUSAND) SUBCUT SCH ×3 (06:16→20:43)
[2017-01-13] MEDS: NS 0.9% 1000 ML* 1,000 ML IV SCH (07:24)
[2017-01-13] MEDS: Insulin LISPRO* 1 UNITS UNIT SUBCUT SCH ×4 (07:51→21:32)
[2017-01-13] MEDS ORDERED: Citalopram TAB* 20 MG PO SCH (09:00)
[2017-01-13] MEDS: Atenolol TAB* 25 MG PO SCH (09:05)
[2017-01-13] MEDS: Clopidogrel TAB* 75 MG PO SCH (09:05)
[2017-01-13] MEDS: Atorvastatin* 20 MG TAB PO SCH (09:05)
[2017-01-13] MEDS: amLODIPine TAB* 5 MG PO SCH (09:05)
[2017-01-13] MEDS: Lisinopril TAB* 10 MG PO SCH (09:06)
[2017-01-13] MEDS: FLUoxetine CAP* 20 MG PO SCH (09:06)
[2017-01-13] MEDS: FLUoxetine CAP* 10 MG PO SCH (09:06)
--- NOTE | 2017-01-13 17:17 | ED ---
Walt Hernandez Alok, scribed for Baljinder Boo MD on 01/12/17 at 1540 . Neurological HPI - HPI Summary HPI Summary: 51F presents to the ED for concern for stroke by her family. Pt was reportedly in the car with her family when her hand began to shake and her face appeared altered. Pt also reported to her family difficulty speaking this morning. Pt c/ o a MACARIO currently and has difficulty answering questions. PMHx includes h/o stroke 04/2016 causing right-sided paralysis since. - History of Current Complaint Stated Complaint: STROKE LIKE SYMPTOMS Hx Obtained From: Patient Onset/Duration: Started minutes ago Onset Severity: Moderate Current Severity: Moderate Character: Impaired Speech Aggravating: Nothing Alleviating: Nothing Associated Signs and Symptoms: Positive: Headache - Additional Pertinent History Primary Care Physician: OSMEL - Allergy/Home Medications Allergies/Adverse Reactions: Allergies Allergy/AdvReac Type Severity Reaction Status Date / Time Clarithromycin [From Biaxin] Allergy Rash Verified 04/10/16 15:29 Diphenhydramine Allergy Rash Verified 04/10/16 15:29 [From Benadryl] Latex Allergy Rash Verified 04/10/16 15:29 Home Medications: Home Medications Atorvastatin* [Lipitor 20 MG*] 20 mg PO DAILY 01/12/17 [History Confirmed ] Citalopram TAB* [CeleXA TAB*] 20 mg PO DAILY 01/12/17 [History Confirmed ] FLUoxetine CAP* [PROzac CAP*] 10 mg PO DAILY 01/12/17 [History Confirmed ] FLUoxetine CAP* [PROzac CAP*] 20 mg PO DAILY 01/12/17 [History Confirmed ] PMH/Surg Hx/FS Hx/Imm Hx Endocrine/Hematology History: Reports: Hx Diabetes Cardiovascular History: Reports: Hx Hypertension, Other Cardiovascular Problems/ Disorders - hx stroke on right side 04/16 Denies: Hx Pacemaker/ICD Respiratory History: Reports: Hx Asthma Musculoskeletal History: Reports: Hx Fibromyalgia, Other Musculoskeletal History - R sided weakness post cva Sensory History: Reports: Hx Contacts or Glasses Denies: Hx Hearing Aid Opthamlomology History: Reports: Hx Contacts or Glasses Psychiatric History: Denies: Hx Panic Disorder - Surgical History Surgery Procedure, Year, and Place: C-CECTION 88, 92 SKIN TAG Infectious Disease History: Denies: Traveled Outside the [place] in Last 30 Days - Family History Known Family History: Positive: Cardiac Disease - Per EMR, Father 68 with NC. Mother at 62 with NC. , Hypertension, Diabetes - Social History Occupation: Unemployed Lives: With Family Alcohol Use: Rare Hx Substance Use: No Substance Use Type: Reports: None Smoking Status (MU): Former Smoker Type: Cigarettes Review of Systems Negative: Fever Neurological: Other - difficulty speaking, hand twitching, altered face Positive: Headache All Other Systems Reviewed And Are Negative: Yes Physical Exam Triage Information Reviewed: Yes Vital Signs On Initial Exam: Initial Vital Signs Temp 99.2 F 01/12/17 16:02 Pulse 69 01/12/17 16:02 Resp 21 01/12/17 16:02 BP 172/71 01/12/17 16:02 Pulse Ox 100 01/12/17 16:02 Vital Signs Reviewed: Yes Appearance: Positive: Well-Appearing, No Pain Distress Skin: Positive: Warm, Skin Color Reflects Adequate Perfusion, Dry Head/Face: Positive: Normal Head/Face Inspection Eyes: Positive: Normal ENT: Positive: Normal ENT inspection Neck: Positive: Supple, Nontender Respiratory/Lung Sounds: Positive: Clear to Auscultation, Breath Sounds Present Cardiovascular: Positive: RRR Abdomen Description: Positive: Nontender, Soft Bowel Sounds: Positive: Present Musculoskeletal: Positive: Other - Right side paralysis Neurological: Positive: Other - Difficulty answering questions possibly due to expressive aphasia Psychiatric: Positive: Normal, Affect/Mood Appropriate Diagnostics - Vital Signs Vital Signs Temp Pulse Resp BP Pulse Ox 01/12/17 17:30 64 17 169/77 99 01/12/17 17:17 67 18 166/64 99 01/12/17 17:00 66 19 100 01/12/17 16:30 65 14 158/84 98 01/12/17 16:05 67 17 172/71 99 01/12/17 16:02 99.2 F 69 21 172/71 100 01/12/17 16:00 70 20 98 01/12/17 15:59 70 18 99 01/12/17 15:57 166/70 - Laboratory Lab Results: Lab Results 01/12/17 01/12/17 01/12/17 Range/Units 17:12 17:12 17:12 WBC 10.9 H (3.5-10.8) 10^3/ul RBC 4.69 (4.0-5.4) 10^6/ul Hgb 13.8 (12.0-16.0) g/dl Hct 41 (35-47) % MCV 88 (80-97) fL MCH 29 (27-31) pg MCHC 33 (31-36) g/dl RDW 13 (10.5-15) % Plt Count 261 (150-450) 10^3/ul MPV 9 (7.4-10.4) um3 Neut % (Auto) 71.7 (38-83) % Lymph % (Auto) 22.8 L (25-47) % Porter % (Auto) 3.6 (1-9) % Eos % (Auto) 1.0 (0-6) % Baso % (Auto) 0.9 (0-2) % Absolute Neuts (auto) 7.8 H (1.5-7.7) 10^3/ul Absolute Lymphs (auto) 2.5 (1.0-4.8) 10^3/ul Absolute Monos (auto) 0.4 (0-0.8) 10^3/ul Absolute Eos (auto) 0.1 (0-0.6) 10^3/ul Absolute Basos (auto) 0.1 (0-0.2) 10^3/ul Absolute Nucleated RBC 0.01 10^3/ul Nucleated RBC % 0.1 INR (Anticoag Therapy) 0.95 (0.89-1.11) APTT 29.6 (26.0-36.3) seconds Sodium 137 (133-145) mmol/L Potassium 4.6 (3.5-5.0) mmol/L Chloride 103 (101-111) mmol/L Carbon Dioxide 27 (22-32) mmol/L Anion Gap 7 (2-11) mmol/L BUN 15 (6-24) mg/dL Creatinine 0.75 (0.51-0.95) mg/dL Est GFR ( Amer) 104.8 (>60) Est GFR (Non-Af Amer) 81.5 (>60) BUN/Creatinine Ratio 20.0 (8-20) Glucose 124 H (70-100) mg/dL Lactic Acid (0.5-2.0) mmol/L Calcium 9.6 (8.6-10.3) mg/dL Total Bilirubin 0.40 (0.2-1.0) mg/dL AST 18 (13-39) U/L ALT 14 (7-52) U/L Alkaline Phosphatase 101 (34-104) U/L Troponin I 0.00 (<0.04) ng/mL Total Protein 7.4 (6.4-8.9) g/dL Albumin 4.0 (3.2-5.2) g/dL Globulin 3.4 (2-4) g/dL Albumin/Globulin Ratio 1.2 (1-3) Triglycerides 154 mg/dL Cholesterol 136 mg/dL LDL Cholesterol 69 mg/dL HDL Cholesterol 36.0 mg/dL 01/12/ Range/Units 17:12 WBC (3.5-10.8) 10^3/ul RBC (4.0-5.4) 10^6/ul Hgb (12.0-16.0) g/dl Hct (35-47) % MCV (80-97) fL MCH (27-31) pg MCHC (31-36) g/dl RDW (10.5-15) % Plt Count (150-450) 10^3/ul MPV (7.4-10.4) um3 Neut % (Auto) (38-83) % Lymph % (Auto) (25-47) % Porter % (Auto) (1-9) % Eos % (Auto) (0-6) % Baso % (Auto) (0-2) % Absolute Neuts (auto) (1.5-7.7) 10^3/ul Absolute Lymphs (auto) (1.0-4.8) 10^3/ul Absolute Monos (auto) (0-0.8) 10^3/ul Absolute Eos (auto) (0-0.6) 10^3/ul Absolute Basos (auto) (0-0.2) 10^3/ul Absolute Nucleated RBC 10^3/ul Nucleated RBC % INR (Anticoag Therapy) (0.89-1.11) APTT (26.0-36.3) seconds Sodium (133-145) mmol/L Potassium (3.5-5.0) mmol/L Chloride (101-111) mmol/L Carbon Dioxide (22-32) mmol/L Anion Gap (2-11) mmol/L BUN (6-24) mg/dL Creatinine (0.51-0.95) mg/dL Est GFR ( Amer) (>60) Est GFR (Non-Af Amer) (>60) BUN/Creatinine Ratio (8-20) Glucose (70-100) mg/dL Lactic Acid 1.5 (0.5-2.0) mmol/L Calcium (8.6-10.3) mg/dL Total Bilirubin (0.2-1.0) mg/dL AST (13-39) U/L ALT (7-52) U/L Alkaline Phosphatase (34-104) U/L Troponin I (<0.04) ng/mL Total Protein (6.4-8.9) g/dL Albumin (3.2-5.2) g/dL Globulin (2-4) g/dL Albumin/Globulin Ratio (1-3) Triglycerides mg/dL Cholesterol mg/dL LDL Cholesterol mg/dL HDL Cholesterol mg/dL Result Diagrams: 01/12/17 17:12 01/12/17 17:12 Lab Statement: Any lab studies that have been ordered have been reviewed, and results considered in the medical decision making process. - Radiology CXR Xray Interpretation: Positive (See Comments) - IMPRESSION: No radiographic evidence for acute cardiopulmonary abnormality on this portable chest x-ray. Radiology Interpretation Completed By: Radiologist - CT Brain CT CT Interpretation: Positive (See Comments) - IMPRESSION: OLD LEFT MCA DISTRIBUTION INFARCT. NO ACUTE FINDINGS. CT Interpretation Completed By: Radiologist Course/Dx - Course Course Of Treatment: Ms. Wolf presented dramatically with difficulty speaking and right sided weakness. She had had a previous CVA and has some degree of weakness on the right at baseline. A rodríguez Rhoades was called and her sisteer arrived with more history. She apparently had some movement of her right side and her face in the car. It seems likely that she had a seizure and a Saw's paralysis . Dr. Shah came and evaluated her and she is being admitted to the hospitalist service. - Diagnoses Provider Diagnoses: New onset seizure, Saw's paralysis During the Visit The Following Alert/Code Occurred: Rodríguez Rhoades - Called at 1549 - Physician Notifications Discussed Care Of Patient With: Osvaldo Shah - Will come examine pt Time Discussed With Above Provider: 15:50 - Recommends admit and kolton Instructed by Provider To: Admit As Inpatient - Pt admited to Dr. Prajapati ( Hospitalist) @ [id number] - Critical Care Time Critical Care Time: 30-74 min Discharge - Discharge Plan Condition: Stable Disposition: ADMITTED TO [facility] documentation as recorded by the Walt garcia Alok accurately reflects the service I personally performed and the decisions made by me, Baljinder Boo MD.
[2017-01-13] MEDS: Insulin GLARGINE(*) 1 UNITS UNIT SUBCUT SCH (17:37)
--- NOTE | 2017-01-13 17:39 | PN ---
Subjective Date of Service: 01/13/17 Interval History: Patient feels closer to her baseline now. No events overnight. Objective Active Medications: Amlodipine Besylate (Norvasc Tab*) 5 mg PO DAILY [facility] Last Admin: 01/13/17 09:05 Dose: 5 mg Atenolol (Tenormin Tab*) 25 mg PO DAILY [facility] Last Admin: 01/13/17 09:05 Dose: 25 mg Atorvastatin Calcium (Lipitor*) 20 mg PO DAILY [facility] Last Admin: 01/13/17 09:05 Dose: 20 mg Clopidogrel Bisulfate (Plavix Tab*) 75 mg PO DAILY [facility] Last Admin: 01/13/17 09:05 Dose: 75 mg Dextrose (D50w Syringe 50 Ml*) 12.5 gm IV PUSH .FOR FS < 60 - SS PRN PRN Reason: FS < 60 Fluoxetine HCl (Prozac Cap*) 10 mg PO DAILY [facility] Last Admin: 01/13/17 09:06 Dose: 10 mg Fluoxetine HCl (Prozac Cap*) 20 mg PO DAILY [facility] Last Admin: 01/13/17 09:06 Dose: 20 mg Heparin Sodium (Porcine) (Heparin Vial(*)) 5,000 units SUBCUT Q8HR [facility] Last Admin: 01/13/17 06:16 Dose: 5,000 units Insulin Glargine (Lantus(*)) 10 units SUBCUT QPM [facility] Last Admin: 01/12/17 21:52 Dose: 10 units Insulin Human Lispro (Humalog*) 0 units SUBCUT ACHS [facility] PRN Reason: Protocol Last Admin: 01/13/17 17:26 Dose: Not Given Levetiracetam (Keppra Tab*) 750 mg PO BID [facility] Lisinopril (Prinivil Tab*) 10 mg PO DAILY [facility] Last Admin: 01/13/17 09:06 Dose: 10 mg Trazodone HCl (Desyrel Tab*) 50 mg PO BEDTIME [facility] Last Admin: 01/12/17 21:26 Dose: 50 mg Vital Signs 01/12/17 01/12/17 01/12/17 18:00 18:30 19:00 Temperature Pulse Rate 61 63 Respiratory 16 21 Rate Blood Pressure 146/85 132/102 138/60 (mmHg) O2 Sat by Pulse 98 99 Oximetry 01/12/17 01/12/17 01/12/17 20:00 20:27 21:24 Temperature 97.5 F Pulse Rate 60 Respiratory 17 17 Rate Blood Pressure 138/60 (mmHg) O2 Sat by Pulse 99 99 Oximetry 01/13/17 01/13/17 01/13/17 00:23 04:33 07:53 Temperature 97.3 F 97.6 F 97.8 F Pulse Rate 62 64 58 Respiratory 16 16 16 Rate Blood Pressure 130/53 134/67 145/65 (mmHg) O2 Sat by Pulse 97 98 97 Oximetry 01/13/17 01/13/17 11:48 16:08 Temperature 97.5 F 97.9 F Pulse Rate 62 63 Respiratory 16 20 Rate Blood Pressure 141/60 119/50 (mmHg) O2 Sat by Pulse 97 96 Oximetry Appearance: Overweight woman sitting up in bed in NAD Eyes: No Scleral Icterus Ears/Nose/Mouth/Throat: Mucous Membranes Moist Neck: No Thyroid Enlargement, Masses Respiratory: Clear to Auscultation Cardiovascular: - - S1S2 lou Abdominal: No Hepatosplenomegaly Lymphatic: No Cervical Adenopathy Extremities: No Clubbing, Cyanosis Skin: No Rash or Ulcers Neurological: Alert and Oriented x 3 Result Diagrams: 01/12/17 17:12 01/12/17 17:12 Additional Lab and Data: Lab Results 01/12/17 01/12/17 01/12/17 Range/Units 17:12 17:12 17:12 WBC 10.9 H (3.5-10.8) 10^3/ul RBC 4.69 (4.0-5.4) 10^6/ul Hgb 13.8 (12.0-16.0) g/dl Hct 41 (35-47) % MCV 88 (80-97) fL MCH 29 (27-31) pg MCHC 33 (31-36) g/dl RDW 13 (10.5-15) % Plt Count 261 (150-450) 10^3/ul MPV 9 (7.4-10.4) um3 Neut % (Auto) 71.7 (38-83) % Lymph % (Auto) 22.8 L (25-47) % Jack % (Auto) 3.6 (1-9) % Eos % (Auto) 1.0 (0-6) % Baso % (Auto) 0.9 (0-2) % Absolute Neuts (auto) 7.8 H (1.5-7.7) 10^3/ul Absolute Lymphs (auto) 2.5 (1.0-4.8) 10^3/ul Absolute Monos (auto) 0.4 (0-0.8) 10^3/ul Absolute Eos (auto) 0.1 (0-0.6) 10^3/ul Absolute Basos (auto) 0.1 (0-0.2) 10^3/ul Absolute Nucleated RBC 0.01 10^3/ul Nucleated RBC % 0.1 INR (Anticoag Therapy) 0.95 (0.89-1.11) APTT 29.6 (26.0-36.3) seconds Sodium 137 (133-145) mmol/L Potassium 4.6 (3.5-5.0) mmol/L Chloride 103 (101-111) mmol/L Carbon Dioxide 27 (22-32) mmol/L Anion Gap 7 (2-11) mmol/L BUN 15 (6-24) mg/dL Creatinine 0.75 (0.51-0.95) mg/dL Est GFR ( Amer) 104.8 (>60) Est GFR (Non-Af Amer) 81.5 (>60) BUN/Creatinine Ratio 20.0 (8-20) Glucose 124 H (70-100) mg/dL Lactic Acid (0.5-2.0) mmol/L Calcium 9.6 (8.6-10.3) mg/dL Total Bilirubin 0.40 (0.2-1.0) mg/dL AST 18 (13-39) U/L ALT 14 (7-52) U/L Alkaline Phosphatase 101 (34-104) U/L Troponin I 0.00 (<0.04) ng/mL Total Protein 7.4 (6.4-8.9) g/dL Albumin 4.0 (3.2-5.2) g/dL Globulin 3.4 (2-4) g/dL Albumin/Globulin Ratio 1.2 (1-3) Triglycerides 154 mg/dL Cholesterol 136 mg/dL LDL Cholesterol 69 mg/dL HDL Cholesterol 36.0 mg/dL 01/12/17 Range/Units 17:12 WBC (3.5-10.8) 10^3/ul RBC (4.0-5.4) 10^6/ul Hgb (12.0-16.0) g/dl Hct (35-47) % MCV (80-97) fL MCH (27-31) pg MCHC (31-36) g/dl RDW (10.5-15) % Plt Count (150-450) 10^3/ul MPV (7.4-10.4) um3 Neut % (Auto) (38-83) % Lymph % (Auto) (25-47) % Jack % (Auto) (1-9) % Eos % (Auto) (0-6) % Baso % (Auto) (0-2) % Absolute Neuts (auto) (1.5-7.7) 10^3/ul Absolute Lymphs (auto) (1.0-4.8) 10^3/ul Absolute Monos (auto) (0-0.8) 10^3/ul Absolute Eos (auto) (0-0.6) 10^3/ul Absolute Basos (auto) (0-0.2) 10^3/ul Absolute Nucleated RBC 10^3/ul Nucleated RBC % INR (Anticoag Therapy) (0.89-1.11) APTT (26.0-36.3) seconds Sodium (133-145) mmol/L Potassium (3.5-5.0) mmol/L Chloride (101-111) mmol/L Carbon Dioxide (22-32) mmol/L Anion Gap (2-11) mmol/L BUN (6-24) mg/dL Creatinine (0.51-0.95) mg/dL Est GFR ( Amer) (>60) Est GFR (Non-Af Amer) (>60) BUN/Creatinine Ratio (8-20) Glucose (70-100) mg/dL Lactic Acid 1.5 (0.5-2.0) mmol/L Calcium (8.6-10.3) mg/dL Total Bilirubin (0.2-1.0) mg/dL AST (13-39) U/L ALT (7-52) U/L Alkaline Phosphatase (34-104) U/L Troponin I (<0.04) ng/mL Total Protein (6.4-8.9) g/dL Albumin (3.2-5.2) g/dL Globulin (2-4) g/dL Albumin/Globulin Ratio (1-3) Triglycerides mg/dL Cholesterol mg/dL LDL Cholesterol mg/dL HDL Cholesterol mg/dL Assess/Plan/Problems-Billing Assessment: 51 year old woman with a past med history of CVA who presented [facility] with seizure like symptoms. - Patient Problems (1) Seizure Current Visit: Yes Status: Acute Code(s): R56.9 - UNSPECIFIED CONVULSIONS SNOMED Code(s): 74843280 Comment: Appreciate neurology's input. They recommend to keep one more night. Increase Keppra to 750 bid. (2) CVA (cerebral vascular accident) Current Visit: No Status: Acute Code(s): I63.9 - CEREBRAL INFARCTION, UNSPECIFIED SNOMED Code(s): 690785150 Comment: Stable. Continue current care. (3) Diabetes Current Visit: No Status: Acute Code(s): E11.9 - TYPE 2 DIABETES MELLITUS WITHOUT COMPLICATIONS SNOMED Code(s): 77762002 Comment: Continue Lantus. FS with SSI. Sugars adequate control (4) DVT prophylaxis Current Visit: No Status: Acute Code(s): KRI4275 - SNOMED Code(s): 097061317 Comment: Heparin SQ. (5) Full code status Current Visit: No Status: Acute Code(s): Z78.9 - OTHER SPECIFIED HEALTH STATUS SNOMED Code(s): 036444927
--- NOTE | 2017-01-13 18:08 | PN ---
CC: Dr. Shah PROGRESS NOTE: DATE OF FOLLOWUP: 01/13/17 LOCATION: The patient is in room 442. OVERNIGHT EVENTS: No acute overnight events. Brandy does not recall well what occurred yesterday, but she does recall riding in the car with her sister. She reports that she has been up on her feet to the bathroom, but is not as steady as her usual baseline and she also had some urinary incontinence on the way to the bathroom as well. She had problems with incontinence after her stroke, but had improved significantly after therapy and was no longer having problems with urinary incontinence. Her daughter is present at the bedside and seems to think that her speech is relatively at baseline but was not paying particularly careful attention as I was talking with the patient. The patient gets tearful easily and this is apparently her baseline as well. She tells me today that she does not believe she has been taking Plavix and also denies taking aspirin. The daughter prepares the medications for her mother once a week and did not recognize the names either Plavix or clopidogrel. Neither the patient nor daughter is sure why she would not be taking this medication. The patient does state that she was taking her daily aspirin prior to her stroke in April. MEDICATIONS: Were reviewed and include: 1. Norvasc 5 mg daily. 2. Atenolol 25 mg daily. 3. Lipitor 20 mg daily. 4. Clopidogrel 75 mg daily. 5. Fluoxetine 30 mg daily. 6. Lantus. 7. Humalog. 8. Levetiracetam 500 mg IV q.12 hours scheduled. 9. Lisinopril 10 mg daily. 10. IV fluids at 100 mL per hour. 11. Trazodone 50 mg at bedtime. PHYSICAL EXAMINATION: Vital Signs: Temperature 97.5, blood pressure 141/60, heart rate 62, oxygen saturation 97% on room air. On general examination, she is intermittently tearful during the exam. She denies any recent illnesses prior to this apparent seizure. Her speech is nonfluent. She makes frequent paraphasic errors. Her speech is of low volume, but generally clear and understandable. She had significant difficulty naming objects on the stroke card and repeatedly called multiple objects a cookie. This occurred after she had tried to explain the Cookie The[employer] picture, which she was able to do in a fragmented way, but stated that the children were trying to get something out of "good jars." On cranial nerve examination, her pupils are equal, round, and reactive from 4 to 2mm bilaterally. Versions are full without nystagmus. Garcia are full to confrontation with no extinction to double simultaneous stimulation. There is no appreciable facial droop. Facial sensation is intact and symmetric in the V1 through V3 distributions bilaterally. Hearing is intact to voice. Palate elevates symmetrically and the tongue is midline. On motor examination, she has a right pronator drift. She has a very mild weakness in the proximal right upper extremity in the deltoid, in the biceps. Strength is otherwise full. Sensation is diminished to light touch in the arm and leg on the right but there is no extinction to double simultaneous stimulation. Reflexes are 2 to 3 + in the right upper extremity, 2+ left upper extremity, 2+ knees. Toes are up on the right and down on the left. There is no ataxia on [id number] testing. She was not ambulated. DIAGNOSTIC STUDIES/LAB DATA: Reviewed includes a CBC collected yesterday showing a white count of 10.9 with an elevated absolute neutrophil count of 7.8. Her CMP was largely unremarkable aside from a nonfasting glucose of 124. Her glucose this morning at 7:48 was 115. Cholesterol studies showed triglycerides 154, total cholesterol 136, LDL is 69, and HDL of 36. Her coagulation studies were normal. A noncontrast brain CT was personally reviewed and shows encephalomalacia in the territory of the left MCA region with some cortical involvement. I also reviewed her MRI scan and her CT angiogram from April of 2016. The MRI confirmed the presence of an ischemic stroke in the left MCA region and the CT angiogram showed decreased attenuation and perfusion in the left M1 and M2 branches without any obvious occlusion noted. IMPRESSION AND PLAN: Brandy Wolf is a 51-year-old woman with multiple vascular risk factors including hypertension, diabetes, and obesity, who presented with a focal left hemispheric seizure resulting in staring and right facial and arm clonic activity in the setting of left middle cerebral artery stroke approximately 9 months ago. She was loaded with 1 g of Keppra in the ER yesterday and has been continued on 500 mg twice daily IV. She is somewhat sleepy today which may be related to the Keppra versus continued recovery from her seizure. She does not sound to be quite back to her baseline at this point , so I think we should continue to monitor her today and I will have her Keppra dose increased to 750 mg twice a day and we will switch this to p.o. Her daughter is going to check on whether she has been taking Plavix or not at home. The importance of this medication was stressed with the patient and her family today and she should obviously be discharged with instructions to take this medication. Furthermore, she may benefit from additional therapies, namely speech therapy, as an outpatient. If her walking is improved and there is no further significant incontinence, then she is likely able to be discharged tomorrow on Keppra 750 mg twice daily. I would stop her IV fluids if there is no good reason to continue which her may help with her incontinence as well. She should follow up with Dr. Shah as an outpatient, who saw her both for her acute stroke last time and in the emergency room yesterday. [id number]/[facility] #: [id number] MTDD
[2017-01-13] MEDS: levETIRAcetam TAB* 500 MG PO SCH (20:42)
[2017-01-13] MEDS: traZODone TAB* 50 MG TAB PO SCH (20:43)
[2017-01-14] MEDS: Heparin VIAL(*) 5000 UNITS/ML VIAL (FIVE THOUSAND) SUBCUT SCH ×2 (06:33→13:10)
[2017-01-14] MEDS: Insulin LISPRO* 1 UNITS UNIT SUBCUT SCH ×2 (08:02→11:36)
[2017-01-14] MEDS: Lisinopril TAB* 10 MG PO SCH (08:03)
[2017-01-14] MEDS: Atorvastatin* 20 MG TAB PO SCH (08:03)
[2017-01-14] MEDS: Clopidogrel TAB* 75 MG PO SCH (08:03)
[2017-01-14] MEDS: amLODIPine TAB* 5 MG PO SCH (08:03)
[2017-01-14] MEDS: Atenolol TAB* 25 MG PO SCH (08:04)
[2017-01-14] MEDS: FLUoxetine CAP* 20 MG PO SCH (08:04)
[2017-01-14] MEDS: levETIRAcetam TAB* 500 MG PO SCH (08:04)
[2017-01-14] MEDS: FLUoxetine CAP* 10 MG PO SCH (08:04)
[2017-01-14 11:56] VITALS: BP 117/61
--- NOTE | 2017-01-15 03:06 | PN ---
NEUROLOGY PROGRESS NOTE: DATE OF FOLLOWUP: 01/14/17 OVERNIGHT EVENTS: No acute overnight events. The patient feels more steady on her feet and has not had any more urinary incontinence. She and her daughter feel she is ready to be discharged. The patient's daughter forgot to check whether she has clopidogrel at home or not. I note that trazodone is listed on her home medication list, but the daughter indicates she has not been taking this recently. MEDICATIONS: Reviewed and include Plavix, Lipitor, Norvasc, Prozac, levetiracetam 750 mg b.i.d., lisinopril, and trazodone 50 mg at bedtime. PHYSICAL EXAMINATION: Vital Signs: Temperature was 98.3, blood pressure 117/61 , heart rate 54, oxygen saturation 99% on room air. A formal exam was not completed today. On observation, the patient was sitting at the edge of her bed with her granddaughter on her lap eating lunch. Her face was symmetric. Her speech was clear. She did not have labile emotions during my time in the room. IMPRESSION: Brandy Wofl is a 51-year-old woman with a history of left MCA stroke less than one year ago who presented with a focal seizure two days ago. She has been started on Keppra and the dose was increased to 750 mg twice daily last night. She has tolerated this well so far. She has improved in terms of her walking and bladder continence as well as her language per her daughter, back to her baseline. She should be sent home on Keppra 750 mg twice daily and also with a prescription for clopidogrel 75 mg daily as it is not clear whether the patient has been taking this or not, but she certainly should be. Furthermore, I advised permanent discontinuation of trazodone as this can lower the seizure threshold. Otherwise, from my perspective, the patient is neurologically stable for discharge today. [id number]/[facility] #: [id number] [facility] HOSPITALRadha
--- NOTE | 2017-01-15 04:31 | DS ---
CC: Dr. Asia Núñez; Dr. Go Mckenzie * DISCHARGE SUMMARY: DATE OF ADMISSION: 01/12/17 DATE OF DISCHARGE: 01/14/17 ADMISSION DIAGNOSES: 1. Seizure, status post cerebrovascular accident. 2. Diabetes mellitus. 3. Hypertension. 4. Tobacco abuse. DISCHARGE DIAGNOSES: 1. Seizure, status post cerebrovascular accident. 2. Diabetes mellitus. 3. Hypertension. 4. Tobacco abuse. HOSPITAL COURSE: Patient is a 51-year-old woman who presented to [facility] with a chief complaint that she had sudden onset of seizure-like symptoms in the car with her sister. Please see H and P for further details. The patient was admitted, placed on Keppra 500 mg twice daily. The patient was seen in consult by Neurology. Patient was asymptomatic the rest of her hospital course. The patient will follow up with Neurology as an outpatient and get an EEG done. The patient will return to the ED if symptoms recur. PHYSICAL EXAMINATION: On the date of discharge; obese woman, lying in bed, in no acute distress. Vital Signs: Temperature 98.3 degrees, heart rate 54 beats per minute, respiratory rate 16 breaths per minute, pulse ox 98% on room air, blood pressure 117/61. HEENT: Normocephalic, atraumatic. Pupils equal, round, and reactive to light. Moist mucous membranes. Neck: Supple. No JVD, bruits, palpable thyroid, or lymphadenopathy. Chest: Clear to auscultation and percussion bilaterally. Cardiovascular Exam: S1 and S2 appreciated. Abdominal Exam: Positive bowel sounds in all four quadrants, soft, nontender, nondistended. Extremities: No cyanosis, clubbing, or edema. +2 peripheral pulses bilaterally. Neuro: She is alert and oriented x3. She has about 4/5 motor strength in the right upper extremity, but 5/5 on the other side, slightly aphasic. Skin: No rashes or distinct abnormalities. STUDIES DONE WHILE IN THE HOSPITAL: 1. Brain CT, 01/12/17, impression: Old left MCA distribution infarct, no acute findings. 2. Chest x-ray, no radiographic evidence for acute cardiopulmonary abnormality in this portable chest x-ray. DISCHARGE MEDICATIONS: 1. Lantus insulin 10 units subcu q.p.m. 2. Prozac 30 mg daily. 3. Amlodipine 5 mg daily. 4. Lisinopril 10 mg daily. 5. Plavix 75 mg daily. 6. Lipitor 20 mg daily. 7. Atenolol 25 mg daily. 8. Keppra 750 mg twice daily. DISCHARGE PLAN: The patient will be discharged home. She will follow up with her PCP within 1 week. She will follow up with Neurology in 4 to 6 weeks. Patient will return to the ED if symptoms recur. TIME SPENT: Over 45 minutes was spent on this discharge, more than 25 minutes of which was spent in direct [id number] contact with the patient in evaluation , physical exam, and counselling, and coordination of care. [id number]/[facility] #: [id number] MTDD
== END 2017-01-14 14:30 | disposition home or self-care (01) ==
LOC: ED 15:19 → MEDTELE 17:56
PROVIDERS: ADMIT Internal Medicine; ATTEND Internal Medicine
DX: R56.9 Unspecified convulsions (principal); I69.351 Hemiplegia and hemiparesis following cerebral infarction affecting right dominant side; I10 Essential (primary) hypertension; Z79.4 Long term (current) use of insulin; F41.9 Anxiety disorder, unspecified; J45.909 Unspecified asthma, uncomplicated; Z87.891 Personal history of nicotine dependence; Z79.01 Long term (current) use of anticoagulants
CPT/HCPCS: 36415; 70450; 71010; 80053; 80061; 83036; 83605; 84484; 85025; 85610; 85730; 96361; 96365; 96366; 96372; 99285; A9270-GY; G0378; J1644

== ENCOUNTER 2017-10-10 10:34 | Emergency (ER) | payer OTHER ==
--- NOTE | 2017-10-10 11:11 | RAD ---
HISTORY: Right-sided weakness COMPARISONS: January 12, 2017 TECHNIQUE: Multiple contiguous axial CT scans were obtained of the head without intravenous contrast. FINDINGS: HEMORRHAGE/INFARCT: There is no hemorrhage or acute infarct. MASSES/SHIFT: There is no mass or shift. EXTRA-AXIAL SPACES: There are no extra-axial fluid collections. SULCI AND VENTRICLES: The sulci and ventricles are normal in size and position for the patient's stated age. CEREBRUM: There is stable encephalomalacia of the left frontal lobe and insula. BRAINSTEM: There are no focal parenchymal abnormalities. CEREBELLUM: There are no focal parenchymal abnormalities. VESSELS: The vessels are grossly normal. PARANASAL SINUSES: There is a mucous retention cyst versus polypoid mucosal thickening of the left axillary sinus. ORBITS: The orbits are unremarkable. BONES AND SOFT TISSUE: No bone or soft tissue abnormalities are noted. OTHER: None IMPRESSION: NO ACUTE INTRACRANIAL PATHOLOGY. STABLE REMOTE INFARCT OF THE LEFT MCA TERRITORY
[2017-10-10 11:13] LABS: Urine Appearance Cloudy; Urine Blood 1+ (Negative); Urine Color Yellow; Urine Ketones Negative (Negative); Urine Protein Negative (Negative); Urine Specific Gravity 1.021 (1.010-1.030); Urine Urobilinogen Negative (Negative)
[2017-10-10 11:23] LABS: ABS Basophils 0 10^3/ul (0-0.2); ABS Eosinophils 0.1 10^3/ul (0-0.6); ABS Lymphocytes 1.9 10^3/ul (1.0-4.8); ABS Monocytes 0.4 10^3/ul (0-0.8); ABS Neutrophils 7.7 10^3/ul (1.5-7.7); ABS Nucleated RBC 0 10^3/ul; Eosinophil % 0.7 % (0-6); Hematocrit 40 % (35-47); Hemoglobin 13.6 g/dl (12.0-16.0); Lymphocyte % 18.9 % (25-47); Mean Corpuscular HGB Conc 34 g/dl (31-36); Mean Corpuscular Hemoglobin 28 pg (27-31); Mean Corpuscular Volume 84 fL (80-97); Mean Platelet Volume 8.9 um3 (7.4-10.4); Nucleated Red Blood Cells % 0; Platelet Count 253 10^3/ul (150-450); Red Cell Distribution Width 14 % (10.5-15); White Blood Count 10.1 10^3/ul (3.5-10.8)
[2017-10-10 11:31] LABS: INR 0.9 (0.77-1.02)
[2017-10-10 11:44] LABS: EGFR Non-African American 77.6 (>60)
[2017-10-10] MEDS ORDERED: Ciprofloxacin 400MG IVPREMIX(* 400 MG/200 ML BAG IVPB ONE (12:13)
--- NOTE | 2017-10-10 12:35 | RAD ---
INDICATION: Weakness COMPARISON: Most recent comparison chest x-rays dated January 12, 2017 TECHNIQUE: Single AP portable view of the chest was obtained. FINDINGS: Image quality is compromised due to the relative inferiority of a portable chest x-ray. The heart and mediastinum exhibit normal size and contour. The lungs are grossly clear. There is no evidence of a large pleural effusion. Visualized bones are normal for the patient's age. IMPRESSION: No radiographic evidence for acute cardiopulmonary abnormality on this portable chest x-ray.
[2017-10-10 13:54] VITALS: BP 184/85
[2017-10-10] MEDS ORDERED: levETIRAcetam TAB* 500 MG PO ONE (13:55)
[2017-10-10] MEDS ORDERED: levETIRAcetam IV* 1,000 MG in NS 0.9% 100 ML* 100 ML IVPB SCH (14:00)
--- NOTE | 2017-10-11 12:00 | ED ---
Roel Hernandez Angela, scribed for José Whitehead MD on 10/10/17 at 1045 . Neurological HPI - HPI Summary HPI Summary: This pt is a 52 y/o female presenting to [facility] via EMS for increased confusion and right sided weakness. EMS reports the pt has a history of stroke in 2016. EMS states the pt's daughter reported the pt is more confused than at baseline. Per EMS, pt does not make any sense. The last time pt was seen normal was at 22: 00 last night. Pt denies cough, fever, headache, blurry vision. EMS reports the pt is hypertensive. - History of Current Complaint Stated Complaint: STROKE LIKE SYMPTOMS Hx Obtained From: Patient, EMS Onset/Duration: Sudden Onset, Still Present Timing: Sudden Onset Current Severity: Moderate Neurological Deficit Location: RUE, RLE Character: Weak - on the right Aggravating: Nothing Alleviating: Nothing Associated Signs and Symptoms: Positive: Confusion, Weakness - on the right. Negative: Visual Changes, Headache, Pain, Fever - Additional Pertinent History Primary Care Physician: OSMEL - Allergy/Home Medications Allergies/Adverse Reactions: Allergies Allergy/AdvReac Type Severity Reaction Status Date / Time clarithromycin Allergy Rash Verified 10/10/17 10:48 diphenhydramine Allergy Rash Verified 10/10/17 10:48 latex Allergy Rash Verified 10/10/17 10:48 Home Medications: Home Medications Aspirin EC TAB* [Ecotrin EC Low Dose 81 MG*] 81 mg PO DAILY 10/10/17 [History Confirmed 10/10/17] Metoprolol Succinate XL TAB* [Toprol XL TAB*] 25 mg PO DAILY 10/10/17 [History Confirmed 10/10/17] PMH/Surg Hx/FS Hx/Imm Hx Endocrine/Hematology History: Reports: Hx Diabetes Cardiovascular History: Reports: Hx Hypertension, Other Cardiovascular Problems/ Disorders - hx stroke on right side 04/16 Denies: Hx Pacemaker/ICD Respiratory History: Reports: Hx Asthma Musculoskeletal History: Reports: Hx Fibromyalgia, Other Musculoskeletal History - R sided weakness post cva Sensory History: Reports: Hx Contacts or Glasses Denies: Hx Hearing Aid Opthamlomology History: Reports: Hx Contacts or Glasses Psychiatric History: Denies: Hx Panic Disorder - Surgical History Surgery Procedure, Year, and Place: C-CECTION 88, 92 SKIN TAG - Family History Known Family History: Positive: Cardiac Disease - Per EMR, Father 68 with [place]. Mother at 62 with [place]. , Hypertension, Diabetes - Social History Alcohol Use: Rare Hx Substance Use: No Substance Use Type: Reports: None Smoking Status (MU): Former Smoker Type: Cigarettes Review of Systems Negative: Fever, Chills Negative: Blurred Vision Negative: Cough Negative: Other - pain Positive: Weakness - on right side. Negative: Headache All Other Systems Reviewed And Are Negative: Yes Physical Exam - Summary Physical Exam Summary: VITAL SIGNS: Reviewed. GENERAL: Patient is a well-developed and nourished female who is lying comfortable in the stretcher. Patient is not in any acute respiratory distress. HEAD AND FACE: No signs of trauma. No ecchymosis, hematomas or skull depressions. No sinus tenderness. EYES: PERRLA, EOMI x 2, No injected conjunctiva, no nystagmus. No photophobia. EARS: Hearing grossly intact. Ear canals and tympanic membranes are within normal limits. MOUTH: Oropharynx within normal limits. NECK: Supple, trachea is midline, no adenopathy, no JVD, no carotid bruit, no c- spine tenderness, neck with full ROM. No meningeal signs, no Kernig's or brudzinskis signs. CHEST: Symmetric, no tenderness at palpation LUNGS: Clear to auscultation bilaterally. No wheezing or crackles. CVS: Regular rate and rhythm, S1 and S2 present, no murmurs or gallops appreciated. ABDOMEN: Soft, non-tender. No signs of distention. No rebound no guarding, and no masses palpated. Bowel sounds are normal. EXTREMITIES: FROM in all major joints, no edema, no cyanosis or clubbing. NEURO: Alert but not oriented. Speech is normal and follows commands. Pt has weakness on the right side, right upper extremity and right lower extremity. There is decreased sensation on the right side. SKIN: Dry and warm GCS: 15 Triage Information Reviewed: Yes Vital Signs Reviewed: Yes Diagnostics - Laboratory Result Diagrams: 10/10/17 11:12 10/10/17 11:12 Lab Statement: Any lab studies that have been ordered have been reviewed, and results considered in the medical decision making process. - Radiology Chest XR Xray Interpretation: No Acute Changes - IMPRESSION: No radiographic evidence for acute cardiopulmonary abnormality on this portable chest x-ray. Dr. Whitehead has reviewed this radiology report. Radiology Interpretation Completed By: Radiologist - CT Brain CT CT Interpretation: No Acute Changes - IMPRESSION: No acute intracranial pathology. Stable remote infarct of the left MCA territory. Dr. Whitehead has reviewed this radiology report. CT Interpretation Completed By: Radiologist - EKG 11:12 Cardiac Rate: NL EKG Rhythm: Sinus Rhythm - at 87 bpm EKG Interpretation: No ST elevations. Normal axis. NIH Scale - NIH Scale Level of Consciousness: Alert/Keenly Responsive Ask Patient the Month and His/Her Age: Neither Correct/Aphasic Ask Pt to Open/Close Eyes and [place]/Release Non-Paretic Hand: Both Correctly Best Gaze (Only Horizontal Eye Movement): Normal Visual Field Testing: No Visual Loss Facial Paresis-Pt to Smile & Close Eyes or Grimace Symmetry: Normal/Symmetrical Motor Function - Right Arm: Drifts LT 10 seconds Motor Function - Left Arm: No Drift-Holds 10 Seconds Motor Function - Right Leg: Drifts LT 10 seconds Motor Function - Left Leg: No Drift-Holds 10 Seconds Limb Ataxia-Must be out of Proportion to Weakness Present: Absent Sensory (Use Pinprick to Test Arms/Legs/Trunk/Face): Pinprick Less on Affected Best Language (Describe Picture, Name Items): No Aphasia Dysarthria (Read Several Words): Normal Extinction and Inattention: No Abnormality Total Score: 5 NIH Stroke Scale Comment: Pt has hx of stroke in 2016, these symptoms are probably secondary to her old stroke. Re-Evaluation - Re-Evaluation First Eval Re-Evaluation Time: 13:30 Comment: I discussed Dr. Land's recommendations with the pt and family. Pt will be discharged home. Course/Dx - Course Assessment/Plan: This pt is a 52 y/o female presenting to [facility] via EMS for increased confusion and right sided weakness. EMS reports the pt has a history of stroke in 2016. EMS states the pt's daughter reported the pt is more confused than at baseline. Per EMS, pt does not make any sense. The last time pt was seen normal was at 22:00 last night. Pt denies cough, fever, headache, blurry vision. EMS reports the pt is hypertensive. Test results without any significant abnormalities except for glucose of 371, alkaline phosphatase of 132. Urinalysis is positive for UTI. Urine toxicology is negative. Chest XR: No radiographic evidence for acute cardiopulmonary abnormality on this portable chest x-ray. Brain CT: No acute intracranial pathology. Stable remote infarct of the left MCA territory. Daughter reports this morning the pt had an episode of shaking in upper extremities and lower extremities, and she had incontinence of urine and bowel. Daughter notes this episode lasted for 10 minutes and then resolved. Therefore the pt may have had a seizure episode. Daughter stopped taking her medications 1 month ago. She was taking Keppra 750 mg BID. I had a long a conversation with the pt and her daughter including other family member. I believe pts symptoms are secondary to a seizure and UTI, and the family members agree. Pt is back to baseline, as per daughter and other family member. I discussed the case with Dr. Land, neurologist, who is comfortable with the plan to discharge the pt home. In light of the pt not taking her medications, I gave the pt one dose of 1000 mg Keppra in the ED. Pt will be discharged to home and is instructed to continue taking Keppra 750 mg BID. Pt is alert, at her baseline. Family members agree with plan and disposition. Pt will also be given a prescription for Ciprofloxacin for the UTI. I instructed them to return to the ED immediately for weakness, seizure activity or any other worsening or new symptoms. They agree and understand. Pt is hemodynamically stable, alert at her baseline. - Diagnoses Provider Diagnoses: Seizure, UTI (urinary tract infection) - Physician Notifications Discussed Care Of Patient With: Shalonda Land Time Discussed With Above Provider: 13:27 Instructed by Provider To: Other - I discussed pt care with Dr. Land neurologist, who reports he is comfortable with the plan to discharge the pt home. Discharge - Sign-Out/Discharge Documenting (check all that apply): Discharge - discharge to home - Discharge Plan Condition: Stable Disposition: HOME Prescriptions: Ciprofloxacin TAB* [Cipro 500 MG TAB*] 500 mg PO BID #6 tab Patient Education Materials: Urinary Tract Infection in Women (ED), Recurrent Seizures in Adults (ED) Referrals: Go Mckenzie MD [Primary Care Provider] - 3 Days Additional Instructions: Please follow up with your primary care provider. RETURN TO THE ED FOR ANY NEW OR WORSENING SYMPTOMS. The documentation as recorded by the Roel garcia Angela accurately reflects the service I personally performed and the decisions made by , José Whitehead MD.
--- NOTE | 2017-10-12 06:55 | PN ---
Progress Note - Progress Note Date of Service: 10/12/17 Note: Patient's urine culture grew Escherichia coli greater than 100,000. Patient placed on Cipro. will wait for final culture for sensitivity.
--- NOTE | 2017-10-13 11:44 | ED ---
Progress - Progress Note Progress Note: Patient's final urine culture reveals greater than 100,000 Escherichia coli. Patient was started on ciprofloxacin to which organism is sensitive. No change in treatment at this time. Re-Evaluation - Re-Evaluation First Eval Re-Evaluation Time: 13:30 Comment: I discussed Dr. Land's recommendations with the pt and family. Pt will be discharged home. Course/Dx - Diagnoses Provider Diagnoses: Seizure, UTI (urinary tract infection) - Provider Notifications Time Discussed With Above Provider: 13:27 Instructed by Provider To: Other - I discussed pt care with Dr. Land, neurologist, who reports he is comfortable with the plan to discharge the pt home. Discharge - Sign-Out/Discharge Documenting (check all that apply): Post-Discharge Follow Up - Discharge Plan Condition: Stable Disposition: HOME Prescriptions: Ciprofloxacin TAB* [Cipro 500 MG TAB*] 500 mg PO BID #6 tab Patient Education Materials: Urinary Tract Infection in Women (ED), Recurrent Seizures in Adults (ED) Referrals: Go Mckenzie MD [Primary Care Provider] - 3 Days Additional Instructions: Please follow up with your primary care provider. RETURN TO THE ED FOR ANY NEW OR WORSENING SYMPTOMS. - Billing Disposition and Condition Condition: STABLE Disposition: HOME
== END 2017-10-10 14:20 | disposition home or self-care (01) ==
LOC: ED 10:34
DX: R56.9 Unspecified convulsions (principal); N39.0 Urinary tract infection, site not specified; B96.20 Unspecified Escherichia coli [E. coli] as the cause of diseases classified elsewhere; Z86.73 Personal history of transient ischemic attack (TIA), and cerebral infarction without residual deficits; E11.9 Type 2 diabetes mellitus without complications; Z79.4 Long term (current) use of insulin; I10 Essential (primary) hypertension; J45.909 Unspecified asthma, uncomplicated; M79.7 Fibromyalgia; Z88.8 Allergy status to other drugs, medicaments and biological substances; Z88.1 Allergy status to other antibiotic agents; Z91.040 Latex allergy status; Z87.891 Personal history of nicotine dependence
CPT/HCPCS: 36415; 70450; 71045; 80053; 80061; 80307; 80320; 81003; 81015; 83605; 84484; 85025; 85610; 85730; 86850; 86900; 86901; 87077; 87086; 87186; 93005; 96365; 99284; A9270-GY; G0480; J0744

== ENCOUNTER 2019-01-01 04:18 | Emergency (ER) | payer OTHER ==
[2019-01-01] MEDS ORDERED: Insulin REGULAR(*) 1 UNITS UNIT IV PUSH ONE ×4 (04:33→08:06)
[2019-01-01] MEDS ORDERED: levETIRAcetam 1000MG IVPREMIX* 1,000 MG/100 ML BAG IVPB ONE (04:33)
[2019-01-01] MEDS ORDERED: NS 0.9% 1000 ML** 1,000 ML IV ONE ×2 (04:34→06:20)
[2019-01-01] MEDS ORDERED: Labetalol IV* 5 MG/ML 20 ML VIAL IV PUSH ONE (04:34)
--- NOTE | 2019-01-01 04:38 | ED ---
Neurological HPI - HPI Summary HPI Summary: This patient is a 53 year old female brought in by EMS presenting to [facility] with a chief complaint of seizures. She states she ran out of KeCurb Callra approx. 3 days ago. She has a Hx of stroke, and seizures. She reports confusion and incontinence. She is also diabetic and has not been compliant with taking her insulin. - History of Current Complaint Stated Complaint: SEIZURES PER EMS Time Seen by Provider: 01/01/19 04:26 Hx Obtained From: Patient, Family/Cipher Expert Onset/Duration: Sudden Onset, Started minutes ago Onset Severity: Mild Pain Intensity: 0 Associated Signs and Symptoms: Positive: Seizure - Additional Pertinent History Primary Care Physician: OSMEL - Allergy/Home Medications Allergies/Adverse Reactions: Allergies Allergy/AdvReac Type Severity Reaction Status Date / Time clarithromycin Allergy Rash Verified 10/10/17 10:48 diphenhydramine Allergy Rash Verified 10/10/17 10:48 latex Allergy Rash Verified 10/10/17 10:48 PMH/Surg Hx/FS Hx/Imm Hx Endocrine/Hematology History: Reports: Hx Diabetes Cardiovascular History: Reports: Hx Hypertension, Other Cardiovascular Problems/ Disorders - hx stroke on right side 04/16 Denies: Hx Pacemaker/ICD Respiratory History: Reports: Hx Asthma Musculoskeletal History: Reports: Hx Fibromyalgia, Other Musculoskeletal History - R sided weakness post cva Sensory History: Reports: Hx Contacts or Glasses Denies: Hx Hearing Aid Opthamlomology History: Reports: Hx Contacts or Glasses Psychiatric History: Denies: Hx Panic Disorder - Surgical History Surgery Procedure, Year, and Place: C-CECTION 88, 92 SKIN TAG Infectious Disease History: No Infectious Disease History: Denies: Traveled Outside the [place] in Last 30 Days - Family History Known Family History: Positive: Cardiac Disease - Per EMR, Father 68 with [place]. Mother at 62 with [place]. , Hypertension, Diabetes - Social History Alcohol Use: Rare Hx Substance Use: No Substance Use Type: Reports: None Smoking Status (MU): Former Smoker Type: Cigarettes Review of Systems Positive: incontinence Neurological: Other - Seizure, confusion All Other Systems Reviewed And Are Negative: Yes Physical Exam - Summary Physical Exam Summary: VITAL SIGNS: Reviewed. GENERAL: Patient is a well-developed and nourished FEMALE who is lying comfortable in the stretcher. Patient is not in any acute respiratory distress. HEAD AND FACE: No signs of trauma. No ecchymosis, hematomas or skull depressions. No sinus tenderness. EYES: PERRLA, EOMI x 2, No injected conjunctiva, no nystagmus. EARS: Hearing grossly intact. Ear canals and tympanic membranes are within normal limits. MOUTH: Oropharynx within normal limits. NECK: Supple, trachea is midline, no adenopathy, no JVD, no carotid bruit, no c- spine tenderness, neck with full ROM CHEST: Symmetric, no tenderness at palpation LUNGS: Clear to auscultation bilaterally. No wheezing or crackles. CVS: Regular rate and rhythm, S1 and S2 present, no murmurs or gallops appreciated. ABDOMEN: Soft, non-tender. No signs of distention. No rebound no guarding, and no masses palpated. Bowel sounds are normal. EXTREMITIES: FROM in all major joints, no edema, no cyanosis or clubbing. NEURO: Alert and oriented x 3. No acute neurological deficits. Speech is normal and follows commands. Hemiparesis arm weakness, old. SKIN: Dry and warm GCS: 15 Triage Information Reviewed: Yes Vital Signs On Initial Exam: Initial Vitals Temp Pulse Resp BP Pulse Ox 98 F 86 18 192/97 95 01/01/19 04:25 01/01/19 04:25 01/01/19 04:25 01/01/19 04:25 01/01/19 04:25 Vital Signs Reviewed: Yes Diagnostics - Vital Signs Vital Signs Temp Pulse Resp BP Pulse Ox 01/01/19 04:25 98 F 86 18 192/97 95 - Laboratory Result Diagrams: 01/01/19 05:24 01/01/19 05:24 Lab Statement: Any lab studies that have been ordered have been reviewed, and results considered in the medical decision making process. Course/Dx - Course Course Of Treatment: This patient is a 53 year old female brought in by EMS presenting to [facility] with a chief complaint of seizures. Patients daughter said that she has Keppa prescription waiting for them at the pharmacy today. However they do not have insulin at home and the patient has stopped taking insulin because she does not want to take it. We gave her insulin and advised her to take the insulin. The patient has had a fluctuating glucose between 300-500 g/ dl and will be signed out to Dr. Whitehead at shift change 0700 with a discharge disposition pending completion of treatment. - Diagnoses Provider Diagnoses: Recurrent seizures, Hyperglycemia Discharge - Sign-Out/Discharge Documenting (check all that apply): Patient Departure - Discharge, Sign-Out Patient Signing out patient TO: José Whitehead - At shift change 0700 Patient Received Moderate/Deep Sedation with Procedure: No - Discharge Plan Condition: Stable Disposition: HOME Prescriptions: Insulin GLARGINE(*) [Lantus(*)] 10 units SUBCUT QPM #2 vial Patient Education Materials: Epilepsy (ED), Diabetic Hyperglycemia (ED) Referrals: Go Mckenzie MD [Primary Care Provider] - Additional Instructions: Take insulin as directed. Return to ED with any new or worsening symptoms. - Attestation Statements Document Initiated by Scribe: Yes Documenting Scribe: Evans Forrest Provider For Whom Scribe is Documenting (Include Credential): Steven Rome MD Scribe Attestation: Evans Hernandez, scribed for Steven Rome MD on 01/01/19 at 0643. Status of Scribe Document: Ready
[2019-01-01 05:31] LABS: Urine Appearance Clear; Urine Bacteria Absent (Absent); Urine Bilirubin Negative (Negative); Urine Blood Negative (Negative); Urine Color Straw; Urine Glucose 3+(>=500 mg/dL) (Negative); Urine Ketones Trace (Negative); Urine Nitrite Negative (Negative); Urine Protein 1+(30 mg/dL) (Negative); Urine Red Blood Cell Trace(0-2/hpf) (Absent); Urine Specific Gravity 1.024 (1.010-1.030); Urine Squamous Epithelial Cell Present (Absent); Urine Urobilinogen Negative (Negative); Urine White Blood Cell Trace(0-5/hpf) (Absent)
[2019-01-01 05:33] LABS: ABS Basophils 0.1 10^3/ul (0-0.2); ABS Eosinophils 0.2 10^3/ul (0-0.6); ABS Lymphocytes 2.5 10^3/ul (1.0-4.8); ABS Monocytes 0.4 10^3/ul (0-0.8); ABS Neutrophils 6.5 10^3/ul (1.5-7.7); Eosinophil % 1.6 %; Hematocrit 41 % (35-47); Hemoglobin 14.2 g/dL (12.0-16.0); Mean Corpuscular HGB Conc 34 g/dL (31-36); Mean Corpuscular Hemoglobin 29 pg (27-31); Mean Corpuscular Volume 84 fL (80-97); Mean Platelet Volume 8.9 fL (7.4-10.4); Platelet Count 225 10^3/uL (150-450); Red Blood Count 4.95 10^6 /uL (3.70-4.87); Red Cell Distribution Width 14 % (10-15); White Blood Count 9.6 10^3/uL (3.5-10.8)
[2019-01-01 05:40] LABS: Activated Partial Thrombo Time 29.7 seconds (26.0-38.0); INR 0.88 (0.82-1.09)
[2019-01-01 05:50] LABS: Albumin 3.8 g/dL (3.2-5.2); Albumin/Globulin Ratio 1.2 (1-3); BUN/Creatinine Ratio 16.9 (8-20); Calcium 8.5 mg/dL (8.6-10.3); EGFR African American 115.4 (>60); EGFR Non-African American 95.3 (>60); Globulin 3.1 g/dL (2-4); Magnesium 1.7 mg/dL (1.9-2.7); Total Bilirubin 0.3 mg/dL (0.2-1.0); Total Protein 6.9 g/dL (6.4-8.9)
[2019-01-01 06:52] LABS: Potassium 3.4 mmol/L (3.5-5.0)
[2019-01-01] MEDS ORDERED: Insulin REGULAR(*) 1 UNITS UNIT SUBCUT ONE (08:07)
--- NOTE | 2019-01-01 08:10 | UC ---
- Progress Note Progress Note: Pt received in sign out Pt's BG had decreased to 366 after insulin - recheck and trended to 380 Will give IV regular insulin 8unit and 5units subcutaneous Pt is not in DKA - pt with poor medication compliance at hime Anticipate discharge will provide care [facility] clinic info if pt unable to follow up with PCP repeat BG improved will discharge Course/Dx - Diagnoses Provider Diagnoses: Recurrent seizures, Hyperglycemia Discharge - Sign-Out/Discharge Documenting (check all that apply): Patient Departure, Receiving Sign-Out Receiving patient FROM: Steven Rome Patient Received Moderate/Deep Sedation with Procedure: No - Discharge Plan Condition: Stable Disposition: HOME Prescriptions: Insulin GLARGINE(*) [Lantus(*)] 10 units SUBCUT QPM #2 vial Patient Education Materials: Epilepsy (ED), Diabetic Hyperglycemia (ED) Referrals: Go Mckenzie MD [Primary Care Provider] - [facility] [Outside] Additional Instructions: Take insulin as directed. Return to ED with any new or worsening symptoms. - Billing Disposition and Condition Condition: STABLE Disposition: Home
[2019-01-01 09:13] VITALS: BP 151/77
== END 2019-01-01 09:13 | disposition home or self-care (01) ==
LOC: ED 04:18
DX: G40.909 Epilepsy, unspecified, not intractable, without status epilepticus (principal); E11.65 Type 2 diabetes mellitus with hyperglycemia; I10 Essential (primary) hypertension; Z91.14 Patient's other noncompliance with medication regimen; Z79.4 Long term (current) use of insulin; Z79.899 Other long term (current) drug therapy; Z88.8 Allergy status to other drugs, medicaments and biological substances; Z88.1 Allergy status to other antibiotic agents; Z91.040 Latex allergy status; Z87.891 Personal history of nicotine dependence
CPT/HCPCS: 36415; 80053; 81003; 81015; 82803; 83735; 85025; 85610; 85730; 87086; 96361; 96374; 96375; 99283; J1953